=== PATIENT | male | born 1965 | race Caucasian/White ===

== ENCOUNTER 2019-04-27 10:10 | Emergency (ER) | payer OTHER, SELFPAY ==
[2019-04-27] MEDS ORDERED: ENALAPRIL 10 MG TAB ONE (10:53)
[2019-04-27] MEDS ORDERED: ENALAPRILAT 1.25 MG/ML VIAL IV ONE (10:53)
[2019-04-27] MEDS ORDERED: METOPROLOL TAR 50 MG TAB ONE (10:53)
[2019-04-27] MEDS ORDERED: METOPROLOL TARTRATE 5 MG/5 ML INJ IV ONE ×2 (10:53→12:32)
[2019-04-27 11:15] LABS: Basophils % 1.1 % (0-1.3); Hematocrit 44.2 % (39.6-49.0); Lymphocytes % 38.8 % (15.3-44.8); MPV 9.2 fL (7.6-11.3); RBC Red Blood Cell Count 4.17 M/uL (4.33-5.43)
--- NOTE | 2019-04-27 11:22 | RAD REPORT ---
EXAM DESCRIPTION: Lisandra Single View04/27/2019 11:14 am CLINICAL HISTORY: cough COMPARISON: 2007 FINDINGS: The lungs appear clear of acute infiltrate. The heart is normal size IMPRESSION: No acute abnormalities displayed
[2019-04-27 11:24] LABS: Protime INR 1.11
[2019-04-27 11:45] LABS: AST/SGOT 228 U/L (15-37); Albumin 3.2 g/dL (3.4-5.0); Alkaline Phosphatase 82 U/L (45-117); BUN Blood Urea Nitrogen 17 mg/dL (7-18); Bicarbonate 28 mmol/L (21-32); Bilirubin Direct 0.3 mg/dL (0-0.2); Bilirubin Total 0.7 mg/dL (0.2-1.0); Glucose Level 119 mg/dL (74-106); Magnesium 1.9 mg/dL (1.8-2.4); NT PRO-BNP 243 pg/mL (<125); Potassium 4.1 mmol/L (3.5-5.1); Protein, Total 7.6 g/dL (6.4-8.2); Sodium Level 140 mmol/L (136-145); Troponin (Emerg Dept Use Only) < 0.02 ng/mL (0.0-0.045)
[2019-04-27 11:47] LABS: ALT/SGPT 344 U/L (12-78)
--- NOTE | 2019-04-27 13:19 | ER ---
Nurse's Notes [facility] Name: Kahlil Slade Age: 54 yrs Sex: Male : 1965 Arrival Date: 04/27/2019 Time: 10:13 Bed 26 [facility] MD: Diagnosis: Essential (primary) hypertension;Headache Presentation: 04/27 10:15 Presenting complaint: Headache, photosensitivity, and nausea x 2 days, home BP 168/104. hb Takes losartan, has not had morning dose today. Transition of care: patient was not received from another setting of care. Onset of symptoms was April 26, 2019. Risk Assessment: Do you want to hurt yourself or someone else? Patient reports no desire to harm self or others. Initial Sepsis Screen: Does the patient meet any 2 criteria? No. Patient's initial sepsis screen is negative. Does the patient have a suspected source of infection? No. Patient's initial sepsis screen is negative. Care prior to arrival: None. 10:15 Method Of Arrival: Ambulatory hb 10:15 Acuity: AMY 3 hb Triage Assessment: 12:51 Headache History: The patient has had previous headaches and this one is similar to tw2 previous episodes. General: Appears in no apparent distress. Pain: Pain currently is 5 out of 10 on a pain scale. Pain began 1 hour ago. Also complains of photophobia. Historical: - Allergies: 10:18 No Known Allergies; hb - Home Meds: 10:18 losartan 100 mg oral tab once daily [Active]; clopidogrel Oral [Active]; hb - PMHx: 10:18 Hypertension; CAD; hb - PSHx: 10:18 Heart stents; hb - Immunization history:: Adult Immunizations up to date. - Social history:: Smoking status: Patient/guardian denies using tobacco. - Ebola Screening: : No symptoms or risks identified at this time. - Family history:: not pertinent. Screenin:30 Abuse screen: Denies threats or abuse. Nutritional screening: No deficits noted. tw2 Tuberculosis screening: No symptoms or risk factors identified. Fall Risk None identified. Assessment: 10:22 General: Appears in no apparent distress. uncomfortable, Behavior is calm, cooperative, tw2 appropriate for age. Pain: Complains of pain in headache. Neuro: Level of Consciousness is awake, alert, obeys commands, Oriented to person, time. Neuro: Reports headache photophobia. Cardiovascular: Heart tones S1 S2 Patient's skin is warm and dry. Cardiovascular: Reports "tightness in my chest when i first noticed it but i think the motrin helped my headache". Respiratory: Airway is patent Respiratory effort is even, unlabored, Respiratory pattern is regular, symmetrical, Breath sounds are clear bilaterally. GI: No signs and/or symptoms were reported involving the gastrointestinal system. Abdomen is flat, Bowel sounds present X 4 quads. : No signs and/or symptoms were reported regarding the genitourinary system. EENT: No signs and/or symptoms were reported regarding the EENT system. Derm: No signs and/or symptoms reported regarding the dermatologic system. Musculoskeletal: Range of motion: intact in all extremities. 11:21 Reassessment: No changes from previously documented assessment. Patient and/or family tw2 updated on plan of care and expected duration. Pain level reassessed. Patient is alert, oriented x 3, equal unlabored respirations, skin warm/dry/pink. 12:30 Reassessment: No changes from previously documented assessment. Patient and/or family tw2 updated on plan of care and expected duration. Pain level reassessed. Patient is alert, oriented x 3, equal unlabored respirations, skin warm/dry/pink. 12:48 Reassessment: Patient appears in no apparent distress at this time. Patient and/or tw2 family updated on plan of care and expected duration. Pain level reassessed. Patient is alert, oriented x 3, equal unlabored respirations, skin warm/dry/pink. Patient states feeling better. 13:51 Reassessment: Patient appears in no apparent distress at this time. No changes from tw2 previously documented assessment. Patient and/or family updated on plan of care and expected duration. Pain level reassessed. Patient is alert, oriented x 3, equal unlabored respirations, skin warm/dry/pink. Vital Signs: 10:16 BP 157 / 114; Pulse 106; Resp 16; Temp 98.4(O); Pulse Ox 96% ; Weight 106.59 kg; Height hb 5 ft. 11 in. (180.34 cm); Pain 5/10; 11:22 BP 152 / 109; Pulse 79; Resp 22; Pulse Ox 95% on R/A; Pain 5/10; tw2 12:29 BP 140 / 101; Pulse 63; Resp 17; Pulse Ox 95% on R/A; tw2 12:34 BP 124 / 98; Pulse 71; Resp 16; Pulse Ox 98% ; lt1 13:43 BP 133 / 98; Pulse 74; Resp 17; Temp 98.6; Pulse Ox 99% ; lt1 10:16 Body Mass Index 32.77 (106.59 kg, 180.34 cm) hb ED Course: 10:13 Patient arrived in ED. as 10:16 Triage completed. hb 10:16 Arm band placed on. hb 10:18 Placed in gown. Bed in low position. surveillance monitor on. Pulse ox on. NIBP on. tw2 10:23 Ej Argueta MD is Attending Physician. yoandy 10:30 Jennie Yee RN is Primary Nurse. tw2 11:03 Initial lab(s) drawn, by me, sent to lab. Inserted saline lock: 20 gauge in right lt1 antecubital area, using aseptic technique. 11:22 XRAY Chest (1 view) In Process Unspecified. EDMS 13:18 Tristian Irizarry MD is Referral Physician. yoandy 13:26 Ultrasound completed. hr 13:30 US Abdomen Limited In Process Unspecified. EDMS 13:51 No provider procedures requiring assistance completed. IV discontinued, intact, tw2 bleeding controlled, No redness/swelling at site. Pressure dressing applied. Administered Medications: 10:55 Drug: Enalapril 5 mg Route: PO; tw2 12:29 Follow up: Response: No adverse reaction; No change in condition tw2 10:56 Drug: Lopressor (metoprolol TARTRATE) 50 mg Route: PO; tw2 12:29 Follow up: Response: No adverse reaction; No change in condition tw2 11:02 Drug: Enalaprilat 1.25 mg Route: IV; Rate: per protocol; Site: right antecubital; tw2 11:02 Follow up: Response: No adverse reaction; No change in condition; Blood pressure is tw2 unchanged; Blood pressure is unchanged, provider notified; IV Status: Completed infusion 11:04 Drug: Lopressor 5 mg Route: IVP; Site: right antecubital; tw2 12:12 Follow up: Response: No adverse reaction; No change in condition tw2 12:13 Follow up: Response: No adverse reaction; No change in condition tw2 12:35 Drug: Lopressor 5 mg Route: IVP; Site: right antecubital; tw2 12:47 Follow up: Response: No adverse reaction; Blood pressure is lowered tw2 Outcome: 13:18 Discharge ordered by . yoandy 13:51 Discharged to home ambulatory. tw2 13:51 Condition: stable 13:51 Discharge instructions given to patient, Instructed on discharge instructions, follow up and referral plans. medication usage, Demonstrated understanding of instructions, follow-up care, medications, Prescriptions given X 2. 13:55 Patient left the ED. tw2 Signatures: Dispatcher [employer] EDMS Ej Argueta MD MD cha Rod, Sasha Feng Heather, RN RN hb Wise, Tara, RN RN tw2 Estrella Gonzalez 1 Corrections: (The following items were deleted from the chart) 10:18 10:16 BP 159 / 121; Pulse 106bpm; Resp 16bpm; Pulse Ox 96%; Temp 98.4F Oral; 106.59 kg; hb Height 5 ft. 11 in.; BMI: 32.7; Pain 5/10; hb
--- NOTE | 2019-04-27 13:19 | EDPHYS ---
Physician Documentation [facility] Name: Kahlil Slade Age: 54 yrs Sex: Male : 1965 Arrival Date: 04/27/2019 Time: 10:13 Bed 26 Private MD: ED Physician Ej Argueta HPI: 04/27 10:47 This 54 yrs old Male presents to ER via Ambulatory with complaints of High yoandy Blood Pressure, Headache. 10:47 The patient has elevated blood pressure and discovered this at home. Onset: The yoandy symptoms/episode began/occurred 2 day(s) ago. Modifying factors: The symptoms are aggravated by activity, The symptoms are alleviated by remaining still. Associated signs and symptoms: Pertinent positives: headache. Severity of symptoms: At its worst the blood pressure was mild, in the emergency department the blood pressure is unchanged. The patient has not experienced similar symptoms in the past. Historical: - Allergies: 10:18 No Known Allergies; hb - Home Meds: 10:18 losartan 100 mg oral tab once daily [Active]; clopidogrel Oral [Active]; hb - PMHx: 10:18 Hypertension; CAD; hb - PSHx: 10:18 Heart stents; hb - Immunization history:: Adult Immunizations up to date. - Social history:: Smoking status: Patient/guardian denies using tobacco. - Ebola Screening: : No symptoms or risks identified at this time. - Family history:: not pertinent. ROS: 10:47 Constitutional: Negative for fever, chills, and weight loss, Eyes: Negative for injury, yoandy pain, redness, and discharge, ENT: Negative for injury, pain, and discharge, Neck: Negative for injury, pain, and swelling, Cardiovascular: Negative for chest pain, palpitations, and edema, Respiratory: Negative for shortness of breath, cough, wheezing, and pleuritic chest pain, Abdomen/GI: Negative for abdominal pain, nausea, vomiting, diarrhea, and constipation, Back: Negative for injury and pain, : Negative for injury, bleeding, discharge, and swelling, MS/Extremity: Negative for injury and deformity, Skin: Negative for injury, rash, and discoloration, Neuro: Negative for headache, weakness, numbness, tingling, and seizure, Psych: Negative for depression, anxiety, suicide ideation, homicidal ideation, and hallucinations, Allergy/Immunology: Negative for hives, rash, and allergies, Endocrine: Negative for neck swelling, polydipsia, polyuria, polyphagia, and marked weight changes, Hematologic/Lymphatic: Negative for swollen nodes, abnormal bleeding, and unusual bruising. Exam: 10:47 Constitutional: This is a well developed, well nourished patient who is awake, alert, yoandy and in no acute distress. Head/Face: Normocephalic, atraumatic. Eyes: Pupils equal round and reactive to light, extra-ocular motions intact. Lids and lashes normal. Conjunctiva and sclera are non-icteric and not injected. Cornea within normal limits. Periorbital areas with no swelling, redness, or edema. ENT: Nares patent. No nasal discharge, no septal abnormalities noted. Tympanic membranes are normal and external auditory canals are clear. Oropharynx with no redness, swelling, or masses, exudates, or evidence of obstruction, uvula midline. Mucous membranes moist. Neck: Trachea midline, no thyromegaly or masses palpated, and no cervical lymphadenopathy. Supple, full range of motion without nuchal rigidity, or vertebral point tenderness. No Meningismus. Chest/axilla: Normal chest wall appearance and motion. Nontender with no deformity. No lesions are appreciated. Cardiovascular: Regular rate and rhythm with a normal S1 and S2. No gallops, murmurs, or rubs. Normal PMI, no JVD. No pulse deficits. Respiratory: Lungs have equal breath sounds bilaterally, clear to auscultation and percussion. No rales, rhonchi or wheezes noted. No increased work of breathing, no retractions or nasal flaring. Abdomen/GI: Soft, non-tender, with normal bowel sounds. No distension or tympany. No guarding or rebound. No evidence of tenderness throughout. Back: No spinal tenderness. No costovertebral tenderness. Full range of motion. Male : Normal genitalia with no discharge or lesions. Skin: Warm, dry with normal turgor. Normal color with no rashes, no lesions, and no evidence of cellulitis. MS/ Extremity: Pulses equal, no cyanosis. Neurovascular intact. Full, normal range of motion. Neuro: Awake and alert, GCS 15, oriented to person, place, time, and situation. Cranial nerves II-XII grossly intact. Motor strength 5/5 in all extremities. Sensory grossly intact. Cerebellar exam normal. Normal gait. Psych: Awake, alert, with orientation to person, place and time. Behavior, mood, and affect are within normal limits. Vital Signs: 10:16 BP 157 / 114; Pulse 106; Resp 16; Temp 98.4(O); Pulse Ox 96% ; Weight 106.59 kg; Height hb 5 ft. 11 in. (180.34 cm); Pain 5/10; 11:22 BP 152 / 109; Pulse 79; Resp 22; Pulse Ox 95% on R/A; Pain 5/10; tw2 12:29 BP 140 / 101; Pulse 63; Resp 17; Pulse Ox 95% on R/A; tw2 12:34 BP 124 / 98; Pulse 71; Resp 16; Pulse Ox 98% ; lt1 13:43 BP 133 / 98; Pulse 74; Resp 17; Temp 98.6; Pulse Ox 99% ; lt1 10:16 Body Mass Index 32.77 (106.59 kg, 180.34 cm) hb MDM: 10:23 Patient medically screened. [facility] 10:49 Data reviewed: vital signs, nurses notes, EMS record, lab test result(s), EKG, [facility] radiologic studies, plain films. 04/27 10:47 Order name: Basic Metabolic Panel; Complete Time: 12:26 [facility] 04/27 10:47 Order name: CBC with Diff [facility] 04/27 10:47 Order name: LFT's; Complete Time: 12:26 [facility] 04/27 10:47 Order name: Magnesium; Complete Time: 12:26 [facility] 04/27 10:47 Order name: NT PRO-BNP; Complete Time: 12:26 [facility] 04/27 10:47 Order name: PT-INR; Complete Time: 12:26 [facility] 04/27 10:47 Order name: Troponin (emerg Dept Use Only); Complete Time: 12:26 [facility] 04/27 10:47 Order name: XRAY Chest (1 view); Complete Time: 12:26 [facility] 04/27 12:13 Order name: Urine Dipstick--Ancillary (enter results) 04/27 12:59 Order name: US Abdomen Limited [facility] 04/27 10:47 Order name: EKG; Complete Time: 10:49 [facility] 04/27 10:47 Order name: Cardiac monitoring; Complete Time: 10:50 [facility] 04/27 10:47 Order name: EKG - Nurse/Tech; Complete Time: 10:50 [facility] 04/27 10:47 Order name: IV Saline Lock; Complete Time: 11:03 [facility] 04/27 10:47 Order name: Labs collected and sent; Complete Time: 11:03 [facility] 04/27 10:47 Order name: O2 Per Protocol; Complete Time: 10:50 [facility] 04/27 10:47 Order name: O2 Sat Monitoring; Complete Time: 10:50 [facility] 04/27 10:47 Order name: Urine Dipstick-Ancillary (obtain specimen); Complete Time: 12:00 [facility] 04/27 13:22 Order name: Vital Signs; Complete Time: 13:43 [facility] Administered Medications: 10:55 Drug: Enalapril 5 mg Route: PO; tw2 12:29 Follow up: Response: No adverse reaction; No change in condition tw2 10:56 Drug: Lopressor (metoprolol TARTRATE) 50 mg Route: PO; tw2 12:29 Follow up: Response: No adverse reaction; No change in condition tw2 11:02 Drug: Enalaprilat 1.25 mg Route: IV; Rate: per protocol; Site: right antecubital; tw2 11:02 Follow up: Response: No adverse reaction; No change in condition; Blood pressure is tw2 unchanged; Blood pressure is unchanged, provider notified; IV Status: Completed infusion 11:04 Drug: Lopressor 5 mg Route: IVP; Site: right antecubital; tw2 12:12 Follow up: Response: No adverse reaction; No change in condition tw2 12:13 Follow up: Response: No adverse reaction; No change in condition tw2 12:35 Drug: Lopressor 5 mg Route: IVP; Site: right antecubital; tw2 12:47 Follow up: Response: No adverse reaction; Blood pressure is lowered tw2 Disposition: 04/27/19 13:18 Discharged to Home. Impression: Essential (primary) hypertension, Headache. - Condition is Stable. - Discharge Instructions: Hypertension, Hypertension, [id number], Aspirin and Your Heart. - Prescriptions for Toprol XL 50 mg Oral Tablet - take 1 tablet by ORAL route once daily; 20 tablet. Vasotec 5 mg Oral Tablet - take 1 tablet by ORAL route once daily; 30 tablet. - Medication Reconciliation Form, Thank You Letter, Antibiotic Education, Prescription Opioid Use, Work release form form. - Follow up: Private Physician; When: 2 - 3 days; Reason: Recheck today's complaints, Continuance of care, Re-evaluation by your physician. Follow up: Tristian Irizarry; When: 2 - 3 days; Reason: Recheck today's complaints, Continuance of care, Re-evaluation by your physician. - Problem is new. - Symptoms have improved. Signatures: Dispatcher [employer] EDEj Fernandez MD MD cha Baxter, Heather, RN RN Jennie Yee RN RN tw2 Corrections: (The following items were deleted from the chart) 13:55 13:18 04/27/2019 13:18 Discharged to Home. Impression: Essential (primary) tw2 hypertension; Headache. Condition is Stable. Discharge Instructions: Hypertension, Hypertension, [id number], Aspirin and Your Heart. Prescriptions for Toprol XL 50 mg Oral Tablet - take 1 tablet by ORAL route once daily; 20 tablet, Vasotec 5 mg Oral Tablet - take 1 tablet by ORAL route once daily; 30 tablet. and Forms are Medication Reconciliation Form, Thank You Letter, Antibiotic Education, Prescription Opioid Use. Follow up: Private Physician; When: 2 - 3 days; Reason: Recheck today's complaints, Continuance of care, Re-evaluation by your physician. Follow up: Tristian Irizarry; When: 2 - 3 days; Reason: Recheck today's complaints, Continuance of care, Re-evaluation by your physician. Problem is new. Symptoms have improved. yoandy
--- NOTE | 2019-04-27 13:33 | RAD REPORT ---
EXAM DESCRIPTION: US - Abdomen Exam Limited - 04/27/2019 1:26 pm CLINICAL HISTORY: ABD PAIN COMPARISON: ABDOMINAL EXAM LIMITED dated 01/26/2008 FINDINGS: The gallbladder demonstrates no gallstones. No pericholecystic fluid or gallbladder wall t hickening. The common bile duct is normal measuring 2 mm. The liver demonstrates no findings of intrahepatic biliary dilatation. IMPRESSION: Unremarkable examination.
[2019-04-27 14:04] LABS: Blood Morphology Comment NOTED (NOT SEEN); Platelet Estimate DECR; Urine White Blood Cell Casts OK
[2019-04-27 14:05] LABS: Macrocytosis 1+
[2019-04-27 14:12] VITALS: BP 133/98; TEMP 98.6; O2SAT 99
[2019-04-27 20:37] LABS: Urine Blood NEGATIVE (NEG); Urine Glucose NEGATIVE (NEG); Urine Protein NEGATIVE (NEG); Urine Specific Gravity 1.025 (1.005-1.030)
--- NOTE | 2019-04-28 07:28 | EKG ---
Test Date: 2019-04-27 Test Time: 10:25:41 Software Requirements Engineer: ADITYAT MEASUREMENT RESULTS: Intervals: Rate: 98 GA: 138 QRSD: 82 QT: 324 QTc: 413 [place]: P: 52 GA: 138 QRS: 60 T: 49 INTERPRETIVE STATEMENTS: Normal sinus rhythm Normal ECG Compared to ECG 01/25/2008 21:34:08 No significant changes Electronically Signed On 04-28-19 07:25:52 CDT by Tristian Irizarry
== END 2019-04-27 13:55 | disposition home or self-care (01) ==
LOC: ER 10:10
DX: I10 Essential (primary) hypertension (principal); R51 Headache; Z95.5 Presence of coronary angioplasty implant and graft
CPT/HCPCS: 36415; 71045; 76705; 80048; 80076; 81003; 83735; 83880; 84484; 85025; 85610; 93005; 96374; 96375; 99284

== ENCOUNTER 2024-01-03 17:14 | Emergency (ER) | payer OTHER ==
--- OUTSIDE RECORDS SUMMARY | 2024-01-03 17:36 | XMS REPORT | Continuity of Care Document ---
Author Name Unknown Address [address] [facility] [address] [place] [address] [facility] thconnect Address [address] [facility] [address] [place] [address] Care Team Providers Care Associate Veterinarian Name Role Phone Rianna Varela MD Primary Care Physician [phone] RIANNA VARELA Attending Clinician Unavailable BORIS ESQUIVEL Attending Clinician Megan Esquivel MD, Boris Tariq Attending Clinician [phone] Nichole GUARDADO, Rianna Attending Clinician + SALOMÓN SEE Attending Clinician Unavailable Doctor Unassigned, [place] Attending Clinician U jorgito Anderson MD, Kael Attending Clinician [phone] Salomón See MD Attending Clinician [phone] Miguel ENTRY MANAGER, Alise Attending Clinician + ALISE LEVINE Attending Clinician Unavailable 2, [facility] Attending Clinician Unavailable NAYANA TAYLOR Attending Clinician Unavailab NAYANA Qiu Attending Clinician Unavailab HIRA Lopes Attending Clinician Unavailable Ebrahichemo ENTRY MANAGER, Hira Attending Clinician [phone] Unknown, Attending Attending Clinician Unavailab RICKEY Schulte Attending Clinician Unavailable Eusebio ENTRY MANAGER, Linda Blank Attending Clinician + [phone] Alberto ENTRY MANAGER, Rickey Attending Clinician [phone] GABRIEL WINKLER Attending Clinician Unavailable Bri ENTRY MANAGER, Rick B Attending Clinician [phone] Gabriel Winkler MD Attending Clinician [phone] Yasmeen GUARDADO, Judit Attending Clinician [phone] RAE GRIMALDO Attending Clinician Unavailable Cacyana ENTRY MANAGERRae Attending Clinician [phone] Pob, [facility] Main Attending Clinician UnavailMICHAEL Smith Attending Clinician Unavail able RANJITH REID Attending Clinician Unavailshalom Humphrey RN, Ej Attending Clinician Unavailab debi Only, Ang Db Test Attending Clinician Unavailshalom barron UNKNOWN, ATTENDING Attending Clinician UnavailRanjith Aponte MD Attending Clinician [phone] Gabriel Brunson Attending Clinician [phone] GABRIEL REID Attending Clinician Unavailable Rima Paez MD Attending Clinician [phone] RIMA PAEZ Attending Clinician Unavailable [facility] Attending Clinician Unavailable Jason Slade DO Attending Clinician [phone] Aron Burgos MD Attending Clinician [phone] Idalmis Bello Attending Clinician [phone] IDALMIS MEREDITH Attending Clinician Unavaillydia Gregg MD, [facility] Attending Clinician +- [phone] Outpt-Suly, Ccl Attending Clinician Unavailable Cynthia GUARDADO, Roger Vanessa Attending Clinician [phone] [facility]ending Clinician [phone] Pc, [facility] Echo Room 1 - Attending Clinician Rivka Rodríguez MD, William Attending Clinician [phone] ARON BURGOS Attending Clinician Unavailable ALISE LEVINE Admitting Clinician Unavailable JUDIT ARANA Admitting Clinician Unavailable Judit Arana MD Admitting Clinician [phone] RAE GRIMALDO Admitting Clinician Unavailable GABRIEL REID Admitting Clinician Unavailable IDALMIS MEREDITH Admitting Clinician UnavailARON Lopez Admitting Clinician Unavailable Payers Payer Name Policy Type Policy Number Effective Date Expirati on Date Source [id number] 2019 00:00:00 [employer] [id number] 2019 00:00:00 Problems Condition Name Condition Details Condition Category Status Onset Date Resolution Date Last Treatment Date Treating Clinician Comments Source Acute pain of right shoulder Acute pain of right shoulder Disease Active 04-04 00:00: 00 [facility] Acute pain of right shoulder Acute pain of right shoulder Disease Active 04-04 00:00: 00 [facility] Hypomagnes emia Hypomagnes emia Disease Active 2021-08 00:00: 00 [facility] Hepatitis A test positive Hepatitis A test positive Disease Active 2021-08 00:00: 00 [facility] Chronic hepatitis C without hepatic coma Chronic hepatitis C without hepatic coma Disease Active 04-03 00:00: 00 [facility] Chronic constipati on Chronic constipati on Disease Active 2022-0 8-24 00:00: 00 [facility] Continuous RUQ abdominal pain Continuous RUQ abdominal pain Disease Active 0 8-19 00:00: 00 [facility] Lumbar foraminal stenosis Lumbar foraminal stenosis Disease Active 0 8-18 00:00: 00 [facility] Abdominal pain, right upper quadrant Abdominal pain, right upper quadrant Disease Active 0 8-18 00:00: 00 [facility] Constipati on, slow transit Constipati on, slow transit Disease Active 0 8-18 00:00: 00 [facility] Hepatomega ly Hepatomega ly Disease Active 0 8-18 00:00: 00 [facility] Lumbar radiculopa thy Lumbar radiculopa thy Disease Active 0 7-26 00:00: 00 [facility] Gastroesop hageal reflux disease without esophagiti s Gastroesop hageal reflux disease without esophagiti s Disease Active 0 1-25 00:00: 00 [facility] Pneumonia due to COVID-19 virus Pneumonia due to COVID-19 virus Disease Active 1 0-21 00:00: 00 [facility] Centrilobu lar emphysema Centrilobu lar emphysema Disease Active 2020-08 0-21 00:00: 00 [facility] Syncope and collapse Syncope and collapse Disease Active 2020-08 0-21 00:00: 00 [facility] Hospital discharge follow-up Hospital discharge follow-up Disease Active 1 0-21 00:00: 00 [facility] Need for hepatitis C screening test Need for hepatitis C screening test Disease Active 1 0-21 00:00: 00 [facility] Incidental lung nodule Incidental lung nodule Disease Active 1 0-21 00:00: 00 [facility] Narrowing of interverte bral disc space Narrowing of interverte bral disc space Disease Active 0 8-12 00:00: 00 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 Numbness and tingling of right arm Numbness and tingling of right arm Disease Active 12-20 00:00: 00 [facility] Lumbar paraspinal muscle spasm Lumbar paraspinal muscle spasm Disease Active 12-20 00:00: 00 [facility] Nicotine dependence with current use Nicotine dependence with current use Disease Active 2019-08 00:00: 00 [facility] Cirrhosis with alcoholism Cirrhosis with alcoholism Disease Active 2019-08 00:00: 00 [facility] Nicotine dependence with current use Nicotine dependence with current use Disease Active 2019-08 00:00: 00 [facility] Elevated liver enzymes Elevated liver enzymes Disease Active 2019-08 00:00: 00 [facility] Mixed hyperlipid emia Mixed hyperlipid emia Disease Active 02-21 00:00: 00 [facility] Tachycardi a, unspecifie d Tachycardi a, unspecifie d Disease Active 02-21 00:00: 00 [facility] Other male erectile dysfunctio n Other male erectile dysfunctio n Disease Active 02-21 00:00: 00 [facility] Need for pneumococc al vaccinatio n Need for pneumococc al vaccinatio n Disease Active 05-07 00:00: 00 [facility] Essential hypertensi on Essential hypertensi on Disease Active 05-07 00:00: 00 [facility] Screening for malignant neoplasm of colon Screening for malignant neoplasm of colon Disease Active 05-07 00:00: 00 [facility] H/O heart artery stent H/O heart artery stent Disease Active 05-07 00:00: 00 [facility] CAD S/P percutaneo us coronary angioplast y CAD S/P percutaneo us coronary angioplast y Disease Active 05-07 00:00: 00 [facility] Need for pneumococc al vaccinatio n Need for pneumococc al vaccinatio n Disease Active 05-07 00:00: 00 [facility] Need for influenza vaccinatio n Need for influenza vaccinatio n Disease Active 05-07 00:00: 00 [facility] Cerebrovas cular accident (CVA), unspecifie d mechanism Cerebrovas cular accident (CVA), unspecifie d mechanism Disease Active 2017-08 00:00: 00 [facility] Obesity (BMI 30-39.9) Obesity (BMI 30-39.9) Disease Active 2017-08 00:00: 00 [facility] Alcoholism Alcoholism Disease Active 2015-08 00:00: 00 [facility] Smoking Smoking Disease Active 2015-08 00:00: 00 [facility] Allergies, Adverse Reactions, Alerts Allergy Name Allergy Type Status Severity Reaction(s) Onset Date Inactive Date Treating Clinician Comments Source NO KNOWN ALLERGIE S Drug Class Active [facility] Social History Social Habit Start Date Stop Date Quantity Comments Source History of tobacco use Cigarette Smoker [facility] Alcohol intake 2023-10-03 00:00:00 2023-10-03 00:00:00 1.71 /d [facility] History of Social function 2023-04-04 00:00:00 2023-04-04 00:00:00 [facility] Exposure to SARS-CoV-2 (event) 2022-09-20 00:00:00 2022-09-30 14:44:00 Not sure [facility] Cigarettes smoked current (pack per day) - Reported 2022-04-03 00:00:00 2022-04-03 00:00:00 [facility] Cigarette pack-years 2022-04-03 00:00:00 2022-04-03 00:00:00 [facility] Tobacco use and exposure 2022-04-03 00:00:00 2022-04-03 00:00:00 Smokeless tobacco non-user [facility] Tobacco Comment 2022-04-03 00:00:00 2022-04-03 00:00:00 1 pack/ day [facility] Sex Assigned At 1965 00:00:00 1965 00:00:00 [facility] Smoking Status Start Date Stop Date Source Smokes tobacco daily 2022-04-03 00:00:00 [facility] Medications Ordered Medication Name Filled Medication Name Start Date Stop Date Current Medication? Ordering Clinician Indication Dosage Frequency Signature (SIG) Comments Components Source ATORVASTATI N 40 mg tablet 12-11 00:00: 00 Yes [id number] 40mg TAKE 1 TABLET BY MOUTH AT BEDTIME [facility] SPIRONOLACT ONE 25 mg tablet 11-30 00:00: 00 Yes [id number] 25mg TAKE 1 TABLET BY MOUTH IN THE MORNING [facility] GABAPENTIN 400 mg capsule 08-12 00:00: 00 10-03 00:00 :00 No [id number] 400mg TAKE 1 CAPSULE BY MOUTH IN THE MORNING AND 1 CAPSULE AT NOON AND [address] IN THE EVENING [facility] tc 99m-tetrofo smin (MYOVIEW) injection 43.9 millicurie 2022-08 18:45: 00 07-08 18:45 :00 No [id number] 43.9mCi 43.9 millicurie , Intravenou s, ONCE, 1 dose, On Fri07/08/23 at 1245, Routine [facility] tc 99m-tetrofo smin (MYOVIEW) injection 14.6 millicurie 2022-08 16:00: 00 07-08 16:04 :00 No [id number] 14.6mCi 14.6 millicurie , Intravenou s, ONCE, 1 dose, On Fri07/08/23 at 1000, Routine [facility] sulfur hexafluorid e microsphr (LUMASON) injection 5 mL 2022-08 16:00: 00 07-08 15:59 :00 No [id number] 5mL 5 mL, Intravenou s, ONCE, 1 dose, On Fri07/08/23 at 1000, Routine
geography faculty member approving Restricted medication : BORIS ESQUIVEL [facility] regadenoson (LEXISCAN) injection 0.4 mg 2022-08 16:00: 00 07-08 18:50 :00 No [id number] .4mg 0.4 mg, IV Push, ONCE, 1 dose, On 07/08/23 at 1000, Routine
geography faculty member approving Restricted medication : ARNALDO HERNÁNDEZ [facility] COQ10, UBIQUINOL, ORAL 2022-08 14:41: 05 Yes Take by mouth daily. [facility] methylPREDN ISolone (MEDROL, GARRET,) 4 mg tablets 2022-08 00:00: 00 10-03 00:00 :00 No [id number] Take by mouth SEE-INSTRU CTIONS. follow package directions [facility] gadobenate dimeglumine (MULTIHANCE -20 mL) injection 0.2 mL/kg 2022-08 20:00: 00 07-06 19:57 :00 No [id number] .2mL/kg 0.2 mL/kg, Intravenou s, ONCE, 1 dose, On 07/06/23 at 1400, Routine [facility] COQ10, UBIQUINOL, ORAL 2022-08 10:25: 37 Yes Take by mouth daily. [facility] metoprolol succinate XL 50 mg 24 hr tablet 2022-08 00:00: 00 Yes [id number] 50mg Take 1 tablet by mouth in the morning and 1 tablet in the evening. [facility] atorvastati n 40 mg tablet 2022-08 00:00: 00 12-11 00:00 :00 No [id number] 40mg Take 1 tablet by mouth at bedtime. [facility] clopidogreL 75 mg tablet 04-04 00:00: 00 Yes [id number] 75mg Take 1 tablet by mouth in the morning. [facility] enalapril 5 mg tablet 04-04 00:00: 00 Yes [id number] 5mg Take 1 tablet by mouth in the morning. [facility] spironolact one 25 mg tablet 04-04 00:00: 00 11-30 00:00 :00 No [id number] 25mg Take 1 tablet by mouth in the morning. [facility] Diclofenac Sodium (VOLTAREN) 1 % gel 04-04 00:00: 00 10-03 00:00 :00 No [id number] Apply to area(s) 4 (four) times daily. Apply [address] [facility] metoprolol succinate XL 50 mg 24 hr tablet 04-04 00:00: 00 06-24 00:00 :00 No [id number] 50mg Take 1 tablet by mouth in the morning. [facility] METOPROLOL SUCCINATE XL 50 mg 24 hr tablet 03-21 00:00: 00 04-04 00:00 :00 No [id number] 50mg TAKE 1 TABLET BY MOUTH IN THE MORNING [facility] CLOPIDOGREL 75 mg tablet 03-21 00:00: 00 04-04 00:00 :00 No [id number] 75mg TAKE 1 TABLET BY MOUTH IN THE MORNING [facility] ENALAPRIL 5 mg tablet 03-21 00:00: 00 04-04 00:00 :00 No [id number] 5mg TAKE 1 TABLET BY MOUTH IN THE MORNING [facility] sildenafiL 25 mg tablet 02-21 00:00: 00 Yes [id number] 25mg Take 1 tablet by mouth as needed (Erectile dysfunctio n). Take 1 tab 30 mins to 1 hour prior to sexual encounter. Do not mix with alcohol or other medication s. Do not exceed 25mg in [address] [facility] pravastatin 20 mg tablet 02-21 00:00: 00 06-24 00:00 :00 No [id number] 20mg Take 1 tablet by mouth at bedtime. [facility] furosemide 20 mg tablet 02-19 00:00: 00 Yes [id number] 20mg Take 1 tablet by mouth every Friday, and Friday in the evening. [facility] furosemide 20 mg tablet 10-02 00:00: 00 02-18 00:00 :00 No [id number] 20mg Take 1 tablet by mouth every Friday, and Friday in the evening. [facility] metoprolol succinate XL 50 mg 24 hr tablet 10-01 16:08: 58 10-01 00:00 :00 No 50mg Take 50 mg by mouth in the morning. [facility] cyclobenzap rine 10 mg tablet 10-01 00:00: 00 10-03 00:00 :00 No [id number] 10mg Take 1 tablet by mouth in the morning and 1 tablet at noon and 1 tablet in the evening. [facility] gabapentin 400 mg capsule 10-01 00:00: 00 08-12 00:00 :00 No [id number] 400mg Take 1 capsule by mouth in the morning and 1 capsule at noon and 1 capsule in the evening. [facility] spironolact one 25 mg tablet 10-01 00:00: 00 04-04 00:00 :00 No [id number] 25mg Take 1 tablet by mouth in the morning. [facility] enalapril 5 mg tablet 10-01 00:00: 00 03-21 00:00 :00 No [id number] 5mg Take 1 tablet by mouth in the morning. [facility] clopidogreL 75 mg tablet 10-01 00:00: 00 03-21 00:00 :00 No [id number] 75mg Take 1 tablet by mouth in the morning. [facility] metoprolol succinate XL 50 mg 24 hr tablet 10-01 00:00: 00 03-21 00:00 :00 No [id number] 50mg Take 1 tablet by mouth in the morning. [facility] pravastatin 20 mg tablet 10-01 00:00: 00 02-21 00:00 :00 No [id number] 20mg Take 1 tablet by mouth at bedtime. [facility] Magnesium 250 mg Tab 08-27 00:00: 00 Yes [id number] 1{tbl} Take 1 tablet by mouth daily. [facility] Magnesium 250 mg Tab 08-27 00:00: 00 Yes [id number] 1{tbl} Take 1 tablet by mouth daily. [facility] polymyxin B sulf-trimet hoprim 10,000 unit- 1 mg/mL ophthalmic drops 2021-08 00:00: 00 08-07 05:59 :00 No [id number] 1[drp] Place 1 Drop in left eye every 4 (four) hours for [address] [facility] sildenafiL 25 mg tablet 2021-08 00:00: 00 02-21 00:00 :00 No [id number] 25mg Take 1 tablet by mouth as needed (Erectile dysfunctio n). Take 1 tab 30 mins to 1 hour prior to sexual encounter. Do not mix with alcohol or other medication s. Do not exceed 25mg in [address] [facility] famotidine 40 mg tablet 2021-08 00:00: 00 Yes [id number] 40mg Take 1 tablet by mouth in the morning. [facility] sofosbuvir- velpatasvir (EPCLUSA) 400-100 mg 2021-08 00:00: 00 10-01 00:00 :00 No [id number] 1{tbl} Take 1 tablet by mouth in the morning. [facility] sofosbuvir- velpatasvir (EPCLUSA) 400-100 mg 2021-08 0 00:00: 00 Yes [id number] 1{tbl} Take 1 tablet by mouth in the morning. [facility] pravastatin 20 mg tablet 2021-08 0 00:00: 00 10-01 00:00 :00 No [id number] 20mg Take 1 tablet by mouth at bedtime. [facility] neomycin-po lymyxin-hyd rocortisone otic solution 2021-08 0- 00:00: 00 05-30 04:59 :00 No [id number] 3[drp] Place 3 Drops in right ear 4 (four) times daily for [address] [facility] Magnesium 250 mg Tab 05-10 00:00: 00 08-26 00:00 :00 No [id number] 1{tbl} Take 1 tablet by mouth daily. [facility] sofosbuvir- velpatasvir (EPCLUSA) 400-100 mg 05-07 00:00: 00 05-19 00:00 :00 No [id number] 1{tbl} Take 1 tablet by mouth in the morning. [facility] lactulose 10 gram/15 mL (15 mL) Soln 04-04 00:00: 00 10-03 00:00 :00 No [id number] 15mL Take 15 mL by mouth daily. [facility] docusate (COLACE) 100 mg capsule 04-03 00:00: 00 10-03 00:00 :00 No [id number] 100mg Take 1 capsule by mouth 2 (two) times daily as needed for Constipati on. [facility] lactulose 10 gram/15 mL (15 mL) Soln 04-03 00:00: 00 04-04 00:00 :00 No [id number] 15mL Take 15 mL by mouth daily. [facility] lactulose 10 gram/15 mL (15 mL) [facility]: 00 04-03 00:00 :00 No [id number] 15mL Take 15 mL by mouth daily. [facility] omega-3/dha /epa/dpa/fi sh oil (OMEGA-3 2100 ORAL) 03-30 17:32: 21 Yes Take by mouth. [facility] metoprolol succinate XL 50 mg 24 hr tablet 03-30 17:32: 21 Yes 50mg Take 50 mg by mouth in the morning. [facility] polyethylen e glycol 3350 (MIRALAX) 17 gram/dose powder 03-30 00:00: 00 10-03 00:00 :00 No [id number] 17g Take 17 g by mouth in the morning. [facility] sennosides 8.6 mg tablet 03-30 00:00: 00 07-11 00:00 :00 No [id number] 8.6mg Take 1 tablet by mouth in the morning. [facility] furosemide 20 mg tablet 03-29 00:00: 00 10-01 00:00 :00 No [id number] 20mg Take 1 tablet by mouth every Friday, and Friday in the evening. [facility] folic acid 0.8 mg Cap 03-28 00:00: 00 Yes [id number] 1{tbl} Take 1 tablet by mouth daily. [facility] Vitamin B-12 1,000 mcg tablet 03-28 00:00: 00 Yes [id number] 1000ug Take 1 tablet by mouth in the morning. [facility] vitamin B-1 50 mg tablet 03-28 00:00: 00 Yes [id number] 50mg Take 1 tablet by mouth in the morning. [facility] pyridoxine, vitamin B6, 50 mg tablet 03-28 00:00: 00 Yes [id number] 50mg Take 1 tablet by mouth in the morning. [facility] psyllium (METAMUCIL) 0.52 gram capsule 03-28 00:00: 00 10-03 00:00 :00 No [id number] .52g Take 1 capsule by mouth in the morning. [facility] docusate (COLACE) 100 mg capsule 03-28 00:00: 00 04-03 00:00 :00 No [id number] 100mg Take 1 capsule by mouth 2 (two) times daily as needed for Constipati on. [facility] sofosbuvir- velpatasvir (EPCLUSA) 400-100 mg 8-11 00:00: 00 05-07 00:00 :00 No [id number] 1{tbl} Take 1 tablet by mouth in the morning. [facility] aspirin 81 mg chewable tablet 03-05 00:00: 00 Yes [id number] 81mg Take 1 tablet by mouth in the morning. [facility] Lidocaine 5 % cream 03-05 00:00: 00 10-03 00:00 :00 No [id number] Apply to area(s) 2 (two) times daily as needed for Pain (scale 4-6). Apply 5g to affected areas BID PRN [facility] Diclofenac Sodium (VOLTAREN) 1 % gel 03-05 00:00: 00 04-04 00:00 :00 No [id number] Apply to area(s) 4 (four) times daily. Apply [address] [facility] enalapril 5 mg tablet 03-05 00:00: 00 10-01 00:00 :00 No [id number] 5mg Take 1 tablet by mouth in the morning. [facility] spironolact one 25 mg tablet 03-05 00:00: 00 10-01 00:00 :00 No [id number] 25mg Take 1 tablet by mouth in the morning. [facility] clopidogreL 75 mg tablet 03-05 00:00: 00 10-01 00:00 :00 No [id number] 75mg Take 1 tablet by mouth in the morning. [facility] gabapentin 400 mg capsule 03-05 00:00: 00 10-01 00:00 :00 No [id number] 400mg Take 1 capsule by mouth in the morning and 1 capsule at noon and 1 capsule in the evening. [facility] cyclobenzap rine 10 mg tablet 03-05 00:00: 00 10-01 00:00 :00 No [id number] 10mg Take 1 tablet by mouth in the morning and 1 tablet at noon and 1 tablet in the evening. [facility] sildenafiL 25 mg tablet 03-05 00:00: 00 07-11 00:00 :00 No [id number] 25mg Take 1 tablet by mouth as needed (Erectile dysfunctio n). Take 1 tab 30 mins to 1 hour prior to sexual encounter. Do not mix with alcohol or other medication s. Do not exceed 25mg in [address] [facility] atorvastati n 40 mg tablet 7- 00:00: 00 05-19 00:00 :00 No [id number] 40mg Take 1 tablet by mouth at bedtime. [facility] nicotine 21 mg/24 hr patch 2020-08 0-21 00:00: 00 06-24 00:00 :00 No [id number] 1{patch } Apply 1 Patch to area(s) daily. Apply 21mg patch daily x 6 weeks; then apply 14mf patch daily x 2 weeks; then apply 7mg patch daily x 2 weeks. Stop smoking on initiation of therapy [facility] Lidocaine 4 % PtMd 8-12 00:00: 00 10-03 00:00 :00 No [id number] Apply to area(s) daily. [facility] Immunizations Ordered Immunization Name Filled Immunization Name Date Status Comments Source Influenza Virus Vaccine Quad IM, Preserv and ABX Free 6 MO-64 YRS 2022-06-03 00:00:00 Completed [facility] Pneumococcal 20 Conjugate, PCV20 (Prevnar 20) 2022-06-03 00:00:00 Completed [facility] Influenza Virus Vaccine Quad IM, Preserv and ABX Free 6 MO-64 YRS 2022-06-03 00:00:00 Completed [facility] Pneumococcal 20 Conjugate, PCV20 (Prevnar 20) 2022-06-03 00:00:00 Completed [facility] Influenza Virus Vaccine Quad IM, Preserv and ABX Free 6 MO-64 YRS 2022-06-03 00:00:00 Completed [facility] Pneumococcal 20 Conjugate, PCV20 (Prevnar 20) 2022-06-03 00:00:00 Completed [facility] Influenza Virus Vaccine Quad IM, Preserv and ABX Free 6 MO-64 YRS 2022-06-03 00:00:00 Completed [facility] Pneumococcal 20 Conjugate, PCV20 (Prevnar 20) 2022-06-03 00:00:00 Completed [facility] Influenza Virus Vaccine Quad IM, Preserv and ABX Free 6 MO-64 YRS 2022-06-03 00:00:00 Completed [facility] Pneumococcal 20 Conjugate, PCV20 (Prevnar 20) 2022-06-03 00:00:00 Completed [facility] Influenza Virus Vaccine Quad IM, Preserv and ABX Free 6 MO-64 YRS 2022-06-03 00:00:00 Completed [facility] Pneumococcal 20 Conjugate, PCV20 (Prevnar 20) 2022-06-03 00:00:00 Completed [facility] Influenza Virus Vaccine Quad IM, Preserv and ABX Free 6 MO-64 YRS 2022-06-03 00:00:00 Completed [facility] Pneumococcal 20 Conjugate, PCV20 (Prevnar 20) 2022-06-03 00:00:00 Completed [facility] Influenza Virus Vaccine Quad IM, Preserv and ABX Free 6 MO-64 YRS 2022-06-03 00:00:00 Completed [facility] Pneumococcal 20 Conjugate, PCV20 (Prevnar 20) 2022-06-03 00:00:00 Completed [facility] Influenza Virus Vaccine Quad IM, Preserv and ABX Free 6 MO-64 YRS 2022-06-03 00:00:00 Completed [facility] Pneumococcal 20 Conjugate, PCV20 (Prevnar 20) 2022-06-03 00:00:00 Completed [facility] Influenza Virus Vaccine Quad IM, Preserv and ABX Free 6 MO-64 YRS 2022-06-03 00:00:00 Completed [facility] Pneumococcal 20 Conjugate, PCV20 (Prevnar 20) 2022-06-03 00:00:00 Completed [facility] Influenza Virus Vaccine Quad IM, Preserv and ABX Free 6 MO-64 YRS 2022-06-03 00:00:00 Completed [facility] Pneumococcal 20 Conjugate, PCV20 (Prevnar 20) 2022-06-03 00:00:00 Completed [facility] Influenza Virus Vaccine Quad IM, Preserv and ABX Free 6 MO-64 YRS 2022-06-03 00:00:00 Completed [facility] Pneumococcal 20 Conjugate, PCV20 (Prevnar 20) 2022-06-03 00:00:00 Completed [facility] Influenza Virus Vaccine Quad IM, Preserv and ABX Free 6 MO-64 YRS 2022-06-03 00:00:00 Completed [facility] Pneumococcal 20 Conjugate, PCV20 (Prevnar 20) 2022-06-03 00:00:00 Completed [facility] Influenza Virus Vaccine Quad IM, Preserv and ABX Free 6 MO-64 YRS 2022-06-03 00:00:00 Completed [facility] Pneumococcal 20 Conjugate, PCV20 (Prevnar 20) 2022-06-03 00:00:00 Completed [facility] Influenza Virus Vaccine Quad IM, Preserv and ABX Free 6 MO-64 YRS 2022-06-03 00:00:00 Completed [facility] Pneumococcal 20 Conjugate, PCV20 (Prevnar 20) 2022-06-03 00:00:00 Completed [facility] Influenza Virus Vaccine Quad IM, Preserv and ABX Free 6 MO-64 YRS 2022-06-03 00:00:00 Completed [facility] Pneumococcal 20 Conjugate, PCV20 (Prevnar 20) 2022-06-03 00:00:00 Completed [facility] Influenza Virus Vaccine Quad IM, Preserv and ABX Free 6 MO-64 YRS 2022-06-03 00:00:00 Completed [facility] Pneumococcal 20 Conjugate, PCV20 (Prevnar 20) 2022-06-03 00:00:00 Completed [facility] Influenza Virus Vaccine Quad IM, Preserv and ABX Free 6 MO-64 YRS 2022-06-03 00:00:00 Completed [facility] Pneumococcal 20 Conjugate, PCV20 (Prevnar 20) 2022-06-03 00:00:00 Completed [facility] Influenza Virus Vaccine Quad IM, Preserv and ABX Free 6 MO-64 YRS 2022-06-03 00:00:00 Completed [facility] Pneumococcal 20 Conjugate, PCV20 (Prevnar 20) 2022-06-03 00:00:00 Completed [facility] Influenza Virus Vaccine Quad IM, Preserv and ABX Free 6 MO-64 YRS 2022-06-03 00:00:00 Completed [facility] Pneumococcal 20 Conjugate, PCV20 (Prevnar 20) 2022-06-03 00:00:00 Completed [facility] Influenza Virus Vaccine Quad IM, Preserv and ABX Free 6 MO-64 YRS 2022-06-03 00:00:00 Completed [facility] Pneumococcal 20 Conjugate, PCV20 (Prevnar 20) 2022-06-03 00:00:00 Completed [facility] Influenza Virus Vaccine Quad IM, Preserv and ABX Free 6 MO-64 YRS 2022-06-03 00:00:00 Completed [facility] Pneumococcal 20 Conjugate, PCV20 (Prevnar 20) 2022-06-03 00:00:00 Completed [facility] Influenza Virus Vaccine Quad IM, Preserv and ABX Free 6 MO-64 YRS 2022-06-03 00:00:00 Completed [facility] Pneumococcal 20 Conjugate, PCV20 (Prevnar 20) 2022-06-03 00:00:00 Completed [facility] Influenza Virus Vaccine Quad IM, Preserv and ABX Free 6 MO-64 YRS 2022-06-03 00:00:00 Completed [facility] Pneumococcal 20 Conjugate, PCV20 (Prevnar 20) 2022-06-03 00:00:00 Completed [facility] Influenza Virus Vaccine Quad IM, Preserv and ABX Free 6 MO-64 YRS 2022-06-03 00:00:00 Completed [facility] Pneumococcal 20 Conjugate, PCV20 (Prevnar 20) 2022-06-03 00:00:00 Completed [facility] Influenza Virus Vaccine Quad IM, Preserv and ABX Free 6 MO-64 YRS (FLUCELVAX) 2022-06-03 00:00:00 Completed [facility] Pneumococcal 20 Conjugate, PCV20 (Prevnar 20) 2022-06-03 00:00:00 Completed [facility] TDAP 2019-05-07 00:00:00 Completed [facility] Influenza Virus Vaccine Quad .5 mL IM 6+ MO 2019-05-07 00:00:00 Completed [facility] Pneumococcal Polysaccharide, PPSV23 (PNEUMOVAX) 2019-05-07 00:00:00 Completed [facility] TDAP 2019-05-07 00:00:00 Completed [facility] Influenza Virus Vaccine Quad .5 mL IM 6+ MO 2019-05-07 00:00:00 Completed [facility] Pneumococcal Polysaccharide, PPSV23 (PNEUMOVAX) 2019-05-07 00:00:00 Completed [facility] TDAP 2019-05-07 00:00:00 Completed [facility] Influenza Virus Vaccine Quad .5 mL IM 6+ MO 2019-05-07 00:00:00 Completed [facility] Pneumococcal Polysaccharide, PPSV23 (PNEUMOVAX) 2019-05-07 00:00:00 Completed [facility] TDAP 2019-05-07 00:00:00 Completed [facility] Influenza Virus Vaccine Quad .5 mL IM 6+ MO 2019-05-07 00:00:00 Completed [facility] Pneumococcal Polysaccharide, PPSV23 (PNEUMOVAX) 2019-05-07 00:00:00 Completed [facility] TDAP 2019-05-07 00:00:00 Completed [facility] Influenza Virus Vaccine Quad .5 mL IM 6+ MO 2019-05-07 00:00:00 Completed [facility] Pneumococcal Polysaccharide, PPSV23 (PNEUMOVAX) 2019-05-07 00:00:00 Completed [facility] TDAP 2019-05-07 00:00:00 Completed [facility] Influenza Virus Vaccine Quad .5 mL IM 6+ MO 2019-05-07 00:00:00 Completed [facility] Pneumococcal Polysaccharide, PPSV23 (PNEUMOVAX) 2019-05-07 00:00:00 Completed [facility] TDAP 2019-05-07 00:00:00 Completed [facility] Influenza Virus Vaccine Quad .5 mL IM 6+ MO 2019-05-07 00:00:00 Completed [facility] Pneumococcal Polysaccharide, PPSV23 (PNEUMOVAX) 2019-05-07 00:00:00 Completed [facility] TDAP 2019-05-07 00:00:00 Completed [facility] Influenza Virus Vaccine Quad .5 mL IM 6+ MO 2019-05-07 00:00:00 Completed [facility] Pneumococcal Polysaccharide, PPSV23 (PNEUMOVAX) 2019-05-07 00:00:00 Completed [facility] TDAP 2019-05-07 00:00:00 Completed [facility] Influenza Virus Vaccine Quad .5 mL IM 6+ MO 2019-05-07 00:00:00 Completed [facility] Pneumococcal Polysaccharide, PPSV23 (PNEUMOVAX) 2019-05-07 00:00:00 Completed [facility] TDAP 2019-05-07 00:00:00 Completed [facility] Influenza Virus Vaccine Quad .5 mL IM 6+ MO 2019-05-07 00:00:00 Completed [facility] Pneumococcal Polysaccharide, PPSV23 (PNEUMOVAX) 2019-05-07 00:00:00 Completed [facility] TDAP 2019-05-07 00:00:00 Completed [facility] Influenza Virus Vaccine Quad .5 mL IM 6+ MO 2019-05-07 00:00:00 Completed [facility] Pneumococcal Polysaccharide, PPSV23 (PNEUMOVAX) 2019-05-07 00:00:00 Completed [facility] TDAP 2019-05-07 00:00:00 Completed [facility] Influenza Virus Vaccine Quad .5 mL IM 6+ MO 2019-05-07 00:00:00 Completed [facility] Pneumococcal Polysaccharide, PPSV23 (PNEUMOVAX) 2019-05-07 00:00:00 Completed [facility] TDAP 2019-05-07 00:00:00 Completed [facility] Influenza Virus Vaccine Quad .5 mL IM 6+ MO 2019-05-07 00:00:00 Completed [facility] Pneumococcal Polysaccharide, PPSV23 (PNEUMOVAX) 2019-05-07 00:00:00 Completed [facility] TDAP 2019-05-07 00:00:00 Completed [facility] Influenza Virus Vaccine Quad .5 mL IM 6+ MO 2019-05-07 00:00:00 Completed [facility] Pneumococcal Polysaccharide, PPSV23 (PNEUMOVAX) 2019-05-07 00:00:00 Completed [facility] TDAP 2019-05-07 00:00:00 Completed [facility] Influenza Virus Vaccine Quad .5 mL IM 6+ MO 2019-05-07 00:00:00 Completed [facility] Pneumococcal Polysaccharide, PPSV23 (PNEUMOVAX) 2019-05-07 00:00:00 Completed [facility] TDAP 2019-05-07 00:00:00 Completed [facility] Influenza Virus Vaccine Quad .5 mL IM 6+ MO 2019-05-07 00:00:00 Completed [facility] Pneumococcal Polysaccharide, PPSV23 (PNEUMOVAX) 2019-05-07 00:00:00 Completed [facility] TDAP 2019-05-07 00:00:00 Completed [facility] Influenza Virus Vaccine Quad .5 mL IM 6+ MO 2019-05-07 00:00:00 Completed [facility] Pneumococcal Polysaccharide, PPSV23 (PNEUMOVAX) 2019-05-07 00:00:00 Completed [facility] TDAP 2019-05-07 00:00:00 Completed [facility] Influenza Virus Vaccine Quad .5 mL IM 6+ MO 2019-05-07 00:00:00 Completed [facility] Pneumococcal Polysaccharide, PPSV23 (PNEUMOVAX) 2019-05-07 00:00:00 Completed [facility] TDAP 2019-05-07 00:00:00 Completed [facility] Influenza Virus Vaccine Quad .5 mL IM 6+ MO 2019-05-07 00:00:00 Completed [facility] Pneumococcal Polysaccharide, PPSV23 (PNEUMOVAX) 2019-05-07 00:00:00 Completed [facility] TDAP 2019-05-07 00:00:00 Completed [facility] Influenza Virus Vaccine Quad .5 mL IM 6+ MO 2019-05-07 00:00:00 Completed [facility] Pneumococcal Polysaccharide, PPSV23 (PNEUMOVAX) 2019-05-07 00:00:00 Completed [facility] TDAP 2019-05-07 00:00:00 Completed [facility] Influenza Virus Vaccine Quad .5 mL IM 6+ MO 2019-05-07 00:00:00 Completed [facility] Pneumococcal Polysaccharide, PPSV23 (PNEUMOVAX) 2019-05-07 00:00:00 Completed [facility] TDAP 2019-05-07 00:00:00 Completed [facility] Influenza Virus Vaccine Quad .5 mL IM 6+ MO 2019-05-07 00:00:00 Completed [facility] Pneumococcal Polysaccharide, PPSV23 (PNEUMOVAX) 2019-05-07 00:00:00 Completed [facility] TDAP 2019-05-07 00:00:00 Completed [facility] Influenza Virus Vaccine Quad .5 mL IM 6+ MO 2019-05-07 00:00:00 Completed [facility] Pneumococcal Polysaccharide, PPSV23 (PNEUMOVAX) 2019-05-07 00:00:00 Completed [facility] TDAP 2019-05-07 00:00:00 Completed [facility] Influenza Virus Vaccine Quad .5 mL IM 6+ MO 2019-05-07 00:00:00 Completed [facility] Pneumococcal Polysaccharide, PPSV23 (PNEUMOVAX) 2019-05-07 00:00:00 Completed [facility] TDAP 2019-05-07 00:00:00 Completed [facility] Influenza Virus Vaccine Quad .5 mL IM 6+ MO 2019-05-07 00:00:00 Completed [facility] Pneumococcal Polysaccharide, PPSV23 (PNEUMOVAX) 2019-05-07 00:00:00 Completed [facility] TDAP 2019-05-07 00:00:00 Completed [facility] Influenza Virus Vaccine Quad .5 mL IM 6+ MO 2019-05-07 00:00:00 Completed [facility] Pneumococcal Polysaccharide, PPSV23 (PNEUMOVAX) 2019-05-07 00:00:00 Completed [facility] TDAP 2019-05-07 00:00:00 Completed [facility] Influenza Virus Vaccine Quad .5 mL IM 6+ MO 2019-05-07 00:00:00 Completed [facility] Pneumococcal Polysaccharide, PPSV23 (PNEUMOVAX) 2019-05-07 00:00:00 Completed [facility] TDAP 2019-05-07 00:00:00 Completed [facility] Influenza Virus Vaccine Quad .5 mL IM 6+ MO 2019-05-07 00:00:00 Completed [facility] Pneumococcal Polysaccharide, PPSV23 (PNEUMOVAX) 2019-05-07 00:00:00 Completed [facility] TDAP 2019-05-07 00:00:00 Completed [facility] Influenza Virus Vaccine Quad .5 mL IM 6+ MO 2019-05-07 00:00:00 Completed [facility] Pneumococcal Polysaccharide, PPSV23 (PNEUMOVAX) 2019-05-07 00:00:00 Completed [facility] TDAP 2019-05-07 00:00:00 Completed [facility] Influenza Virus Vaccine Quad .5 mL IM 6+ MO 2019-05-07 00:00:00 Completed [facility] Pneumococcal Polysaccharide, PPSV23 (PNEUMOVAX) 2019-05-07 00:00:00 Completed [facility] TDAP 2019-05-07 00:00:00 Completed [facility] Influenza Virus Vaccine Quad .5 mL IM 6+ MO 2019-05-07 00:00:00 Completed [facility] Pneumococcal Polysaccharide, PPSV23 (PNEUMOVAX) 2019-05-07 00:00:00 Completed [facility] TDAP 2019-05-07 00:00:00 Completed [facility] Influenza Virus Vaccine Quad .5 mL IM 6+ MO 2019-05-07 00:00:00 Completed [facility] Pneumococcal Polysaccharide, PPSV23 (PNEUMOVAX) 2019-05-07 00:00:00 Completed [facility] TDAP 2019-05-07 00:00:00 Completed [facility] Influenza Virus Vaccine Quad .5 mL IM 6+ MO 2019-05-07 00:00:00 Completed [facility] Pneumococcal Polysaccharide, PPSV23 (PNEUMOVAX) 2019-05-07 00:00:00 Completed [facility] TDAP 2019-05-07 00:00:00 Completed [facility] Influenza Virus Vaccine Quad .5 mL IM 6+ MO 2019-05-07 00:00:00 Completed [facility] Pneumococcal Polysaccharide, PPSV23 (PNEUMOVAX) 2019-05-07 00:00:00 Completed [facility] TDAP 2019-05-07 00:00:00 Completed [facility] Influenza Virus Vaccine Quad .5 mL IM 6+ MO 2019-05-07 00:00:00 Completed [facility] Pneumococcal Polysaccharide, PPSV23 (PNEUMOVAX) 2019-05-07 00:00:00 Completed [facility] TDAP 2019-05-07 00:00:00 Completed [facility] Influenza Virus Vaccine Quad .5 mL IM 6+ MO 2019-05-07 00:00:00 Completed [facility] Pneumococcal Polysaccharide, PPSV23 (PNEUMOVAX) 2019-05-07 00:00:00 Completed [facility] TDAP 2019-05-07 00:00:00 Completed [facility] Influenza Virus Vaccine Quad .5 mL IM 6+ MO 2019-05-07 00:00:00 Completed [facility] Pneumococcal Polysaccharide, PPSV23 (PNEUMOVAX) 2019-05-07 00:00:00 Completed [facility] TDAP 2019-05-07 00:00:00 Completed [facility] Influenza Virus Vaccine Quad .5 mL IM 6+ MO 2019-05-07 00:00:00 Completed [facility] Pneumococcal Polysaccharide, PPSV23 (PNEUMOVAX) 2019-05-07 00:00:00 Completed [facility] TDAP 2019-05-07 00:00:00 Completed [facility] Influenza Virus Vaccine Quad .5 mL IM 6+ MO (FLUZONE/FLULAVAL/F LUARIX) 2019-05-07 00:00:00 Completed [facility] Pneumococcal Polysaccharide, PPSV23 (PNEUMOVAX) 2019-05-07 00:00:00 Completed [facility] TDAP Unknown Completed [facility] Influenza Virus Vaccine Quad .5 mL IM 6+ MO (FLUZONE/FLULAVAL/F LUARIX) Unknown Completed [facility] Pneumococcal Polysaccharide, PPSV23 (PNEUMOVAX) Unknown Completed [facility] TDAP Unknown Completed [facility] Influenza Virus Vaccine Quad .5 mL IM 6+ MO (FLUZONE/FLULAVAL/F LUARIX) Unknown Completed [facility] Pneumococcal Polysaccharide, PPSV23 (PNEUMOVAX) Unknown Completed [facility] Influenza Virus Vaccine Quad IM, Preserv and ABX Free 6 MO-64 YRS (FLUCELVAX) Unknown Completed [facility] Pneumococcal 20 Conjugate, PCV20 (Prevnar 20) Unknown Completed [facility] TDAP Unknown Completed [facility] Influenza Virus Vaccine Quad .5 mL IM 6+ MO (FLUZONE/FLULAVAL/F LUARIX) Unknown Completed [facility] Pneumococcal Polysaccharide, PPSV23 (PNEUMOVAX) Unknown Completed [facility] Influenza Virus Vaccine Quad IM, Preserv and ABX Free 6 MO-64 YRS (FLUCELVAX) Unknown Completed [facility] Pneumococcal 20 Conjugate, PCV20 (Prevnar 20) Unknown Completed [facility] TDAP Unknown Completed [facility] Influenza Virus Vaccine Quad .5 mL IM 6+ MO (FLUZONE/FLULAVAL/F LUARIX) Unknown Completed [facility] Pneumococcal Polysaccharide, PPSV23 (PNEUMOVAX) Unknown Completed [facility] Influenza Virus Vaccine Quad IM, Preserv and ABX Free 6 MO-64 YRS (FLUCELVAX) Unknown Completed [facility] Pneumococcal 20 Conjugate, PCV20 (Prevnar 20) Unknown Completed [facility] TDAP Unknown Completed [facility] Influenza Virus Vaccine Quad .5 mL IM 6+ MO (FLUZONE/FLULAVAL/F LUARIX) Unknown Completed [facility] Pneumococcal Polysaccharide, PPSV23 (PNEUMOVAX) Unknown Completed [facility] Influenza Virus Vaccine Quad IM, Preserv and ABX Free 6 MO-64 YRS (FLUCELVAX) Unknown Completed [facility] Pneumococcal 20 Conjugate, PCV20 (Prevnar 20) Unknown Completed [facility] TDAP Unknown Completed [facility] Influenza Virus Vaccine Quad .5 mL IM 6+ MO (FLUZONE/FLULAVAL/F LUARIX) Unknown Completed [facility] Pneumococcal Polysaccharide, PPSV23 (PNEUMOVAX) Unknown Completed [facility] Influenza Virus Vaccine Quad IM, Preserv and ABX Free 6 MO-64 YRS (FLUCELVAX) Unknown Completed [facility] Pneumococcal 20 Conjugate, PCV20 (Prevnar 20) Unknown Completed [facility] TDAP Unknown Completed [facility] Influenza Virus Vaccine Quad .5 mL IM 6+ MO (FLUZONE/FLULAVAL/F LUARIX) Unknown Completed [facility] Pneumococcal Polysaccharide, PPSV23 (PNEUMOVAX) Unknown Completed [facility] Influenza Virus Vaccine Quad IM, Preserv and ABX Free 6 MO-64 YRS (FLUCELVAX) Unknown Completed [facility] Pneumococcal 20 Conjugate, PCV20 (Prevnar 20) Unknown Completed [facility] TDAP Unknown Completed [facility] Influenza Virus Vaccine Quad .5 mL IM 6+ MO (FLUZONE/FLULAVAL/F LUARIX) Unknown Completed [facility] Pneumococcal Polysaccharide, PPSV23 (PNEUMOVAX) Unknown Completed [facility] Influenza Virus Vaccine Quad IM, Preserv and ABX Free 6 MO-64 YRS (FLUCELVAX) Unknown Completed [facility] Pneumococcal 20 Conjugate, PCV20 (Prevnar 20) Unknown Completed [facility] TDAP Unknown Completed [facility] Influenza Virus Vaccine Quad .5 mL IM 6+ MO (FLUZONE/FLULAVAL/F LUARIX) Unknown Completed [facility] Pneumococcal Polysaccharide, PPSV23 (PNEUMOVAX) Unknown Completed [facility] Influenza Virus Vaccine Quad IM, Preserv and ABX Free 6 MO-64 YRS (FLUCELVAX) Unknown Completed [facility] Pneumococcal 20 Conjugate, PCV20 (Prevnar 20) Unknown Completed [facility] TDAP Unknown Completed [facility] Influenza Virus Vaccine Quad .5 mL IM 6+ MO (FLUZONE/FLULAVAL/F LUARIX) Unknown Completed [facility] Pneumococcal Polysaccharide, PPSV23 (PNEUMOVAX) Unknown Completed [facility] Influenza Virus Vaccine Quad IM, Preserv and ABX Free 6 MO-64 YRS (FLUCELVAX) Unknown Completed [facility] Pneumococcal 20 Conjugate, PCV20 (Prevnar 20) Unknown Completed [facility] TDAP Unknown Completed [facility] Influenza Virus Vaccine Quad .5 mL IM 6+ MO (FLUZONE/FLULAVAL/F LUARIX) Unknown Completed [facility] Pneumococcal Polysaccharide, PPSV23 (PNEUMOVAX) Unknown Completed [facility] Influenza Virus Vaccine Quad IM, Preserv and ABX Free 6 MO-64 YRS (FLUCELVAX) Unknown Completed [facility] Pneumococcal 20 Conjugate, PCV20 (Prevnar 20) Unknown Completed [facility] TDAP Unknown Completed [facility] Influenza Virus Vaccine Quad .5 mL IM 6+ MO (FLUZONE/FLULAVAL/F LUARIX) Unknown Completed [facility] Pneumococcal Polysaccharide, PPSV23 (PNEUMOVAX) Unknown Completed [facility] Influenza Virus Vaccine Quad IM, Preserv and ABX Free 6 MO-64 YRS (FLUCELVAX) Unknown Completed [facility] Pneumococcal 20 Conjugate, PCV20 (Prevnar 20) Unknown Completed [facility] TDAP Unknown Completed [facility] Influenza Virus Vaccine Quad .5 mL IM 6+ MO (FLUZONE/FLULAVAL/F LUARIX) Unknown Completed [facility] Pneumococcal Polysaccharide, PPSV23 (PNEUMOVAX) Unknown Completed [facility] Influenza Virus Vaccine Quad IM, Preserv and ABX Free 6 MO-64 YRS (FLUCELVAX) Unknown Completed [facility] Pneumococcal 20 Conjugate, PCV20 (Prevnar 20) Unknown Completed [facility] TDAP Unknown Completed [facility] Influenza Virus Vaccine Quad .5 mL IM 6+ MO (FLUZONE/FLULAVAL/F LUARIX) Unknown Completed [facility] Pneumococcal Polysaccharide, PPSV23 (PNEUMOVAX) Unknown Completed [facility] Influenza Virus Vaccine Quad IM, Preserv and ABX Free 6 MO-64 YRS (FLUCELVAX) Unknown Completed [facility] Pneumococcal 20 Conjugate, PCV20 (Prevnar 20) Unknown Completed [facility] TDAP Unknown Completed [facility] Influenza Virus Vaccine Quad .5 mL IM 6+ MO (FLUZONE/FLULAVAL/F LUARIX) Unknown Completed [facility] Pneumococcal Polysaccharide, PPSV23 (PNEUMOVAX) Unknown Completed [facility] Influenza Virus Vaccine Quad IM, Preserv and ABX Free 6 MO-64 YRS (FLUCELVAX) Unknown Completed [facility] Pneumococcal 20 Conjugate, PCV20 (Prevnar 20) Unknown Completed [facility] TDAP Unknown Completed [facility] Influenza Virus Vaccine Quad .5 mL IM 6+ MO (FLUZONE/FLULAVAL/F LUARIX) Unknown Completed [facility] Pneumococcal Polysaccharide, PPSV23 (PNEUMOVAX) Unknown Completed [facility] Influenza Virus Vaccine Quad IM, Preserv and ABX Free 6 MO-64 YRS (FLUCELVAX) Unknown Completed [facility] Pneumococcal 20 Conjugate, PCV20 (Prevnar 20) Unknown [facility] [facility] Unknown Completed [facility] Influenza Virus Vaccine Quad .5 mL IM 6+ MO (FLUZONE/FLULAVAL/F LUARIX) Unknown Completed [facility] Pneumococcal Polysaccharide, PPSV23 (PNEUMOVAX) Unknown Completed [facility] Influenza Virus Vaccine Quad IM, Preserv and ABX Free 6 MO-64 YRS (FLUCELVAX) Unknown Completed [facility] Pneumococcal 20 Conjugate, PCV20 (Prevnar 20) Unknown Completed [facility] TDAP Unknown Completed [facility] Influenza Virus Vaccine Quad .5 mL IM 6+ MO (FLUZONE/FLULAVAL/F LUARIX) Unknown Completed [facility] Pneumococcal Polysaccharide, PPSV23 (PNEUMOVAX) Unknown Completed [facility] Influenza Virus Vaccine Quad IM, Preserv and ABX Free 6 MO-64 YRS (FLUCELVAX) Unknown Completed [facility] Pneumococcal 20 Conjugate, PCV20 (Prevnar 20) Unknown Completed [facility] TDAP Unknown Completed [facility] Influenza Virus Vaccine Quad .5 mL IM 6+ MO (FLUZONE/FLULAVAL/F LUARIX) Unknown Completed [facility] Pneumococcal Polysaccharide, PPSV23 (PNEUMOVAX) Unknown Completed [facility] Influenza Virus Vaccine Quad IM, Preserv and ABX Free 6 MO-64 YRS (FLUCELVAX) Unknown Completed [facility] Pneumococcal 20 Conjugate, PCV20 (Prevnar 20) Unknown Completed [facility] TDAP Unknown Completed [facility] Influenza Virus Vaccine Quad .5 mL IM 6+ MO (FLUZONE/FLULAVAL/F LUARIX) Unknown Completed [facility] Pneumococcal Polysaccharide, PPSV23 (PNEUMOVAX) Unknown Completed [facility] Influenza Virus Vaccine Quad IM, Preserv and ABX Free 6 MO-64 YRS (FLUCELVAX) Unknown Completed [facility] Pneumococcal 20 Conjugate, PCV20 (Prevnar 20) Unknown Completed [facility] TDAP Unknown Completed [facility] Influenza Virus Vaccine Quad .5 mL IM 6+ MO (FLUZONE/FLULAVAL/F LUARIX) Unknown Completed [facility] Pneumococcal Polysaccharide, PPSV23 (PNEUMOVAX) Unknown Completed [facility] Influenza Virus Vaccine Quad IM, Preserv and ABX Free 6 MO-64 YRS (FLUCELVAX) Unknown Completed [facility] Pneumococcal 20 Conjugate, PCV20 (Prevnar 20) Unknown Completed [facility] TDAP Unknown Completed [facility] Influenza Virus Vaccine Quad .5 mL IM 6+ MO (FLUZONE/FLULAVAL/F LUARIX) Unknown Completed [facility] Pneumococcal Polysaccharide, PPSV23 (PNEUMOVAX) Unknown Completed [facility] Influenza Virus Vaccine Quad IM, Preserv and ABX Free 6 MO-64 YRS (FLUCELVAX) Unknown Completed [facility] Pneumococcal 20 Conjugate, PCV20 (Prevnar 20) Unknown Completed [facility] TDAP Unknown Completed [facility] Influenza Virus Vaccine Quad .5 mL IM 6+ MO (FLUZONE/FLULAVAL/F LUARIX) Unknown Completed [facility] Pneumococcal Polysaccharide, PPSV23 (PNEUMOVAX) Unknown Completed [facility] Influenza Virus Vaccine Quad IM, Preserv and ABX Free 6 MO-64 YRS (FLUCELVAX) Unknown Completed [facility] Pneumococcal 20 Conjugate, PCV20 (Prevnar 20) Unknown Completed [facility] TDAP Unknown Completed [facility] Influenza Virus Vaccine Quad .5 mL IM 6+ MO (FLUZONE/FLULAVAL/F LUARIX) Unknown Completed [facility] Pneumococcal Polysaccharide, PPSV23 (PNEUMOVAX) Unknown Completed [facility] Influenza Virus Vaccine Quad IM, Preserv and ABX Free 6 MO-64 YRS (FLUCELVAX) Unknown Completed [facility] Pneumococcal 20 Conjugate, PCV20 (Prevnar 20) Unknown Completed [facility] TDAP Unknown Completed [facility] Influenza Virus Vaccine Quad .5 mL IM 6+ MO (FLUZONE/FLULAVAL/F LUARIX) Unknown Completed [facility] Pneumococcal Polysaccharide, PPSV23 (PNEUMOVAX) Unknown Completed [facility] Influenza Virus Vaccine Quad IM, Preserv and ABX Free 6 MO-64 YRS (FLUCELVAX) Unknown Completed [facility] Pneumococcal 20 Conjugate, PCV20 (Prevnar 20) Unknown Completed [facility] TDAP Unknown Completed [facility] Influenza Virus Vaccine Quad .5 mL IM 6+ MO (FLUZONE/FLULAVAL/F LUARIX) Unknown Completed [facility] Pneumococcal Polysaccharide, PPSV23 (PNEUMOVAX) Unknown Completed [facility] Influenza Virus Vaccine Quad IM, Preserv and ABX Free 6 MO-64 YRS (FLUCELVAX) Unknown Completed [facility] Pneumococcal 20 Conjugate, PCV20 (Prevnar 20) Unknown Completed [facility] TDAP Unknown Completed [facility] Influenza Virus Vaccine Quad .5 mL IM 6+ MO (FLUZONE/FLULAVAL/F LUARIX) Unknown Completed [facility] Pneumococcal Polysaccharide, PPSV23 (PNEUMOVAX) Unknown Completed [facility] Influenza Virus Vaccine Quad IM, Preserv and ABX Free 6 MO-64 YRS (FLUCELVAX) Unknown Completed [facility] Pneumococcal 20 Conjugate, PCV20 (Prevnar 20) Unknown Completed [facility] TDAP Unknown Completed [facility] Influenza Virus Vaccine Quad .5 mL IM 6+ MO (FLUZONE/FLULAVAL/F LUARIX) Unknown Completed [facility] Pneumococcal Polysaccharide, PPSV23 (PNEUMOVAX) Unknown Completed [facility] Influenza Virus Vaccine Quad IM, Preserv and ABX Free 6 MO-64 YRS (FLUCELVAX) Unknown Completed [facility] Pneumococcal 20 Conjugate, PCV20 (Prevnar 20) Unknown Completed [facility] TDAP Unknown Completed [facility] Influenza Virus Vaccine Quad .5 mL IM 6+ MO (FLUZONE/FLULAVAL/F LUARIX) Unknown Completed [facility] Pneumococcal Polysaccharide, PPSV23 (PNEUMOVAX) Unknown Completed [facility] Influenza Virus Vaccine Quad IM, Preserv and ABX Free 6 MO-64 YRS (FLUCELVAX) Unknown Completed [facility] Pneumococcal 20 Conjugate, PCV20 (Prevnar 20) Unknown Completed [facility] TDAP Unknown Completed [facility] Influenza Virus Vaccine Quad .5 mL IM 6+ MO (FLUZONE/FLULAVAL/F LUARIX) Unknown Completed [facility] Pneumococcal Polysaccharide, PPSV23 (PNEUMOVAX) Unknown Completed [facility] Influenza Virus Vaccine Quad IM, Preserv and ABX Free 6 MO-64 YRS (FLUCELVAX) Unknown Completed [facility] Pneumococcal 20 Conjugate, PCV20 (Prevnar 20) Unknown Completed [facility] TDAP Unknown Completed [facility] Influenza Virus Vaccine Quad .5 mL IM 6+ MO (FLUZONE/FLULAVAL/F LUARIX) Unknown Completed [facility] Pneumococcal Polysaccharide, PPSV23 (PNEUMOVAX) Unknown Completed [facility] Influenza Virus Vaccine Quad IM, Preserv and ABX Free 6 MO-64 YRS (FLUCELVAX) Unknown Completed [facility] Pneumococcal 20 Conjugate, PCV20 (Prevnar 20) Unknown Completed [facility] Vital Signs Vital Name Observation Time Observation Value Comments 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 Systolic blood pressure 2023-10-03 20:43:00 107 mm[Hg] [facility] Diastolic blood pressure 2023-10-03 20:43:00 67 mm[Hg] [facility] Heart rate 2023-10-03 20:43:00 97 /min [facility] Body temperature 2023-10-03 20:43:00 36.56 Sonali [facility] Respiratory rate 2023-10-03 20:43:00 18 /min [facility] Body height 2023-10-03 20:43:00 180.3 cm [facility] Body weight 2023-10-03 20:43:00 110.678 kg [facility] BMI 2023-10-03 20:43:00 34.03 kg/m2 [facility] Oxygen saturation in Arterial blood by Pulse oximetry 2023-10-03 20:43:00 93 /min [facility] Respiratory rate 2023-08-18 18:10:00 16 /min [facility] Body height 2023-08-18 18:10:00 180.3 cm [facility] Body weight 2023-08-18 18:10:00 110.678 kg [facility] BMI 2023-08-18 18:10:00 34.03 kg/m2 [facility] Systolic blood pressure 2023-07-08 20:39:00 124 mm[Hg] [facility] Diastolic blood pressure 2023-07-08 20:39:00 89 mm[Hg] [facility] Heart rate 2023-07-08 20:39:00 81 /min [facility] Respiratory rate 2023-07-08 20:39:00 18 /min [facility] Body height 2023-07-08 20:39:00 180.3 cm [facility] Body weight 2023-07-08 20:39:00 110.678 kg [facility] BMI 2023-07-08 20:39:00 34.03 kg/m2 [facility] Oxygen saturation in Arterial blood by Pulse oximetry 2023-07-08 20:39:00 94 /min [facility] BMI 2023-06-24 16:59:00 34.23 kg/m2 [facility] Oxygen saturation in Arterial blood by Pulse oximetry 2023-06-24 16:59:00 95 /min [facility] Systolic blood pressure 2023-06-24 16:59:00 118 mm[Hg] [facility] Diastolic blood pressure 2023-06-24 16:59:00 89 mm[Hg] [facility] Heart rate 2023-06-24 16:59:00 100 /min [facility] Body temperature 2023-06-24 16:59:00 36.22 Sonali [facility] Respiratory rate 2023-06-24 16:59:00 18 /min [facility] Body height 2023-06-24 16:59:00 180.3 cm [facility] Body weight 2023-06-24 16:59:00 111.313 kg [facility] Systolic blood pressure 2023-06-24 16:16:00 122 mm[Hg] [facility] Diastolic blood pressure 2023-06-24 16:16:00 87 mm[Hg] [facility] Heart rate 2023-06-24 16:16:00 104 /min [facility] Body temperature 2023-06-24 16:16:00 37.22 Sonali [facility] Respiratory rate 2023-06-24 16:16:00 18 /min [facility] Body height 2023-06-24 16:16:00 180.3 cm [facility] Body weight 2023-06-24 16:16:00 111.948 kg [facility] BMI 2023-06-24 16:16:00 34.42 kg/m2 [facility] Oxygen saturation in Arterial blood by Pulse oximetry 2023-06-24 16:16:00 94 /min [facility] Systolic blood pressure 2023-04-04 20:47:00 126 mm[Hg] [facility] Diastolic blood pressure 2023-04-04 20:47:00 82 mm[Hg] [facility] Heart rate 2023-04-04 20:46:00 95 /min [facility] Body temperature 2023-04-04 20:46:00 36.83 Sonali [facility] Respiratory rate 2023-04-04 20:46:00 16 /min [facility] Body height 2023-04-04 20:46:00 180.3 cm [facility] 2023-04-04 20:46:00 112.401 kg [facility] BMI 2023-04-04 20:46:00 34.56 kg/m2 [facility] Oxygen saturation in Arterial blood by Pulse oximetry 2023-04-04 20:46:00 95 /min [facility] Systolic blood pressure 2022-10-01 21:04:00 116 mm[Hg] [facility] Diastolic blood pressure 2022-10-01 21:04:00 82 mm[Hg] [facility] Heart rate 2022-10-01 21:02:00 112 /min [facility] Respiratory rate 2022-10-01 21:02:00 18 /min [facility] Body height 2022-10-01 21:02:00 180.3 cm [facility] Body weight 2022-10-01 21:02:00 113.853 kg [facility] BMI 2022-10-01 21:02:00 35.01 kg/m2 [facility] Oxygen saturation in Arterial blood by Pulse oximetry 2022-10-01 21:02:00 96 /min [facility] Systolic blood pressure 2022-07-27 20:34:00 134 mm[Hg] [facility] Diastolic blood pressure 2022-07-27 20:34:00 86 mm[Hg] [facility] Heart rate 2022-07-27 20:34:00 87 /min [facility] Body temperature 2022-07-27 20:34:00 36.78 Sonali [facility] Respiratory rate 2022-07-27 20:34:00 18 /min [facility] Body height 2022-07-27 20:34:00 180.3 cm [facility] Body weight 2022-07-27 20:34:00 113.853 kg [facility] BMI 2022-07-27 20:34:00 35.01 kg/m2 [facility] Oxygen saturation in Arterial blood by Pulse oximetry 2022-07-27 20:34:00 98 /min [facility] Systolic blood pressure 2022-07-11 19:39:00 114 mm[Hg] [facility] Diastolic blood pressure 2022-07-11 19:39:00 81 mm[Hg] [facility] Heart rate 2022-07-11 19:39:00 91 /min [facility] Body temperature 2022-07-11 19:39:00 37.11 Sonali [facility] Respiratory rate 2022-07-11 19:39:00 18 /min [facility] Body height 2022-07-11 19:39:00 180.3 cm [facility] Body weight 2022-07-11 19:39:00 112.492 kg [facility] BMI 2022-07-11 19:39:00 34.59 kg/m2 [facility] Oxygen saturation in Arterial blood by Pulse oximetry 2022-07-11 19:39:00 97 /min [facility] Systolic blood pressure 2022-06-13 16:17:00 110 mm[Hg] [facility] Diastolic blood pressure 2022-06-13 16:17:00 77 mm[Hg] [facility] Heart rate 2022-06-13 16:17:00 100 /min [facility] Body temperature 2022-06-13 16:17:00 36.5 Sonali [facility] Respiratory rate 2022-06-13 16:17:00 18 /min [facility] Body height 2022-06-13 16:17:00 180.3 cm [facility] Body weight 2022-06-13 16:17:00 112.628 kg [facility] BMI 2022-06-13 16:17:00 34.63 kg/m2 [facility] Oxygen saturation in Arterial blood by Pulse oximetry 2022-06-13 16:17:00 95 /min [facility] Systolic blood pressure 2022-05-19 21:43:00 129 mm[Hg] [facility] Diastolic blood pressure 2022-05-19 21:43:00 89 mm[Hg] [facility] Heart rate 2022-05-19 21:43:00 98 /min [facility] Body temperature 2022-05-19 21:43:00 36.78 Sonali [facility] Respiratory rate 2022-05-19 21:43:00 18 /min [facility] Body height 2022-05-19 21:43:00 180.3 cm [facility] Body weight 2022-05-19 21:43:00 112.719 kg [facility] BMI 2022-05-19 21:43:00 34.66 kg/m2 [facility] Oxygen saturation in Arterial blood by Pulse oximetry 2022-05-19 21:43:00 95 /min [facility] Systolic blood pressure 2022-05-10 21:16:00 111 mm[Hg] [facility] Diastolic blood pressure 2022-05-10 21:16:00 78 mm[Hg] [facility] Heart rate 2022-05-10 21:16:00 108 /min [facility] Body temperature 2022-05-10 21:16:00 36.72 Sonali [facility] Respiratory rate 2022-05-10 21:16:00 18 /min [facility] Body weight 2022-05-10 21:16:00 111.313 kg [facility] BMI 2022-05-10 21:16:00 34.23 kg/m2 [facility] Oxygen saturation in Arterial blood by Pulse oximetry 2022-05-10 21:16:00 95 /min [facility] Systolic blood pressure 2022-04-03 17:56:00 112 mm[Hg] [facility] Diastolic blood pressure 2022-04-03 17:56:00 79 mm[Hg] [facility] Heart rate 2022-04-03 17:56:00 105 /min [facility] Body temperature 2022-04-03 17:56:00 36.67 Sonali [facility] Respiratory rate 2022-04-03 17:56:00 18 /min [facility] Body height 2022-04-03 17:56:00 180.3 cm [facility] Body weight 2022-04-03 17:56:00 110.995 kg [facility] BMI 2022-04-03 17:56:00 34.13 kg/m2 [facility] Oxygen saturation in Arterial blood by Pulse oximetry 2022-04-03 17:56:00 95 /min [facility] Procedures Procedure Date / Time Performed Performing Clinician Source EXTERNAL PROVIDER RECORDS 2023-07-14 06:01:00 Doctor Unassigned, [place] [facility] MYOCARDIUM PERFUSION STRESS AND REST 2023-07-08 19:46:00 Boris Esquivel [facility] MYOCARDIUM PERFUSION STRESS AND REST 2023-07-08 19:46:00 Boris Esquivel [facility] MYOCARDIUM PERFUSION STRESS AND REST 2023-07-08 19:46:00 Boris Esquivel [facility] MYOCARDIUM PERFUSION STRESS AND REST 2023-07-08 19:46:00 Boris Esquivel [facility] TRANSTHORACIC ECHO (TTE) COMPLETE W/ CONTRAST 2023-07-08 15:36:00 Boris Esquivel [facility] HB ECG ROUTINE & RHYTHM STRIP 2023-06-24 16:21:01 Boris Esquivel [facility] CONSENT/REFUSAL FOR DIAGNOSIS AND TREATMENT 2023-06-24 15:50:31 Doctor Unassigned, [place] [facility] EXTERNAL PROVIDER RECORDS 2022-12-23 05:01:00 Doctor Unassigned, [place] [facility] ASSIGNMENT OF BENEFITS 2022-06-13 15:51:12 Docto r Unassigned, [place] [facility] US ELASTOGRAPHY BASE FUNCT 2022-04-03 15:24:00 Rianna Varela [facility] US ABDOMEN LIMITED 2022-04-03 15:14:00 Charles Varela [facility] Encounters Start Date/Time End Date/Time Encounter Type Admission Type Attending [facility] Care Facility Care Department Encounter ID Source 2021-06-12 07:37:44 Emergency [facility] [id number] [facility] 2021-06-10 00:56:26 Emergency [facility] [id number] [facility] 2021-06-07 18:23:00 Emergency [facility] [id number] [facility] 2024-04-02 13:00:00 2024-04-02 13:00:00 Outpatient R RIANNA VARELA [facility] [id number] [facility] 2023-12-12 00:00:00 2023-12-12 00:00:00 Refill Boris Esquivel [place] [id number] 350.1.13.10 4.2.7.2.[id number] [facility] 2023-12-01 00:00:00 2023-12-01 00:00:00 Refill Rianna Varela [facility] [id number] 350.1.13.10 4.2.7.2.[id number] [facility] 2023-11-26 00:00:00 2023-11-26 00:00:00 Telephone Boris Esquivel [facility] 1.2.840.114 350.1.13.10 4.2.7.2.[id number] [facility] 2023-11-18 00:00:00 2023-11-18 00:00:00 Refill Rianna Varela [facility] [id number] 350.1.13.10 4.2.7.2.[id number] [facility] 2023-11-17 11:45:00 2023-11-17 11:45:00 [id number] 2023-10-06 00:00:00 2023-10-06 00:00:00 Patient Secure Msg Doctor Unassigned, [place] [facility] 1..840.114 350.1.13.10 4.2.7.2.[id number] [facility] 2023-10-03 14:40:00 2023-10-03 15:05:03 Outpatient M[facility] [id number] [facility] 2023-10-03 14:40:00 2023-10-03 15:05:03 Office Visit Jori Andersonma [facility] [id number] 350.1.13.10 4.2.7.2.[id number] [facility] 2023-08-18 12:15:00 2023-08-18 12:30:00 Office Visit Salomón See [facility] 1.2.840.114 350.1.13.10 4.2.7.2.[id number] [facility] 2023-08-18 12:15:00 2023-08-18 12:15:00 Outpatient SALOMÓN GOLDSTEIN [facility] [id number] [facility] 2023-08-09 00:00:00 2023-08-09 00:00:00 Refill [facility] 1.2.840.114 350.1.13.10 4.2.7.2.[id number] [facility] 2023-07-15 00:00:00 2023-07-15 00:00:00 Telephone Boris Esquivel [facility] 1.2.840.114 350.1.13.10 4.2.7.2.[id number] [facility] 2023-07-14 00:00:00 2023-07-14 00:00:00 Orders Only Doctor Unassigned, [place] [facility] 1.2.840.114 350.1.13.10 4.2.7.2.[id number] [facility] 2023-07-11 00:00:00 2023-07-11 00:00:00 Patient Secure Msg Doctor Unassigned, [place] [facility] 1.2.840.114 350.1.13.10 4.2.7.2.[id number] [facility] 2023-07-08 08:29:39 2023-07-08 23:59:00 Hospital Encounter Boris [facility]qu[facility] 1.2.840.114 350.1.13.10 4.2.7.2.[id number] [facility] 2023-07-08 15:00:00 2023-07-08 15:22:29 Office Visit Alise Levine [facility] 1.2.840.114 350.1.13.10 4.2.7.2.[id number] [facility] 2023-07-08 07:58:14 2023-07-08 08:28:00 Hospital Encounter Boris Esquivel [facility] 1.2.840.114 350.1.13.10 4.2.7.2.[id number] [facility] 2023-07-08 07:58:07 2023-07-08 08:28:00 Hospital Encounter Boris Esquivel [facility] 1.2.840.114 350.1.13.10 4.2.7.2.[id number] [facility] 2023-07-08 07:58:01 2023-07-08 08:28:00 Hospital Encounter Boris Esquivel [facility] 1.20.114 350.1.13.10 4.2.7.2.[id number] [facility] 2023-07-08 07:57:51 2023-07-08 07:57:51 [id number] 2023-07-08 07:57:51 2023-07-08 07:57:51 [facility] 1.20.114 350.1.13.10 4.2.7.2.[id number] [facility] 2023-07-06 12:50:42 2023-07-06 23:59:00 Outpatient R ALISE LEVINE [facility] [id number] [facility] 2023-07-06 12:50:42 2023-07-06 23:59:00 Hospital Encounter Alise Levine [facility] 1.2840.114 350.1.13.10 4.2.7.2.[id number] [facility] 2023-06-25 00:00:00 2023-06-25 00:00:00 Telephone Alise Levine [facility] 1.2840.114 350.1.13.10 4.2.7.2.[id number] [facility] 2023-06-24 12:30:00 2023-06-24 12:30:00 Office Visit Alise Lev[facility] 1.2.840.114 350.1.13.10 4.2.7.2.[id number] [facility] 2023-06-24 10:00:00 2023-06-24 10:44:39 Outpatient R BORIS ESQUIVEL [facility] [id number] [facility] 2023-06-24 10:00:00 2023-06-24 10:44:39 Office Visit Boris Esquivel [facility] 1.2.840.114 350.1.13.10 4.2.7.2.[id number] [facility] 2023-06-24 00:00:00 2023-06-24 00:00:00 Orders Only Doctor Unassigned, [place] [facility] 1.2840.114 350.1.13.10 4.2.7.2.[id number] [facility] 2023-05-16 13:00:00 2023-05-16 13:00:00 Outpatient R [facility] [id number] [facility] [facility] 2023-04-23 10:30:00 2023-04-23 10:52:12 Outpatient R RIANNA VARELA [facility] [id number] [facility] 2023-04-23 10:30:00 2023-04-23 10:45:00 Medical Billing Supervisor Visit 2, Adc Lab Rianna Varela [facility]ILD[facility] 1.2.840.114 350.1.13.10 4.2.7.2.[id number] [facility] 2023-04-04 15:40:00 2023-04-04 16:32:44 Outpatient R RIANNA VARELA [facility] [id number] [facility] 2023-04-04 15:40:00 2023-04-04 16:32:44 Office Visit Rianna Varela [facility] 1.2.840.114 350.1.13.10 4.2.7.2.[id number] [facility] 2023-03-29 00:00:00 2023-03-29 00:00:00 Refill Rianna Varela [facility] 1.2.840.114 350.1.13.10 4.2.7.2.[id number] [facility] 2023-03-21 00:00:00 2023-03-21 00:00:00 Refill Rianna Varela [facility] BU[facility] 1.2.840.114 350.1.13.10 4.2.7.2.[id number] [facility] 2023-02-21 00:00:00 2023-02-21 00:00:00 Refill Rianna Varela [facility] 1.2.840.114 350.1.13.10 4.2.7.2.[id number] [facility] 2023-02-18 00:00:00 2023-02-18 00:00:00 Refill Rianna Varela [facility] 1.2.840.114 350.1.13.10 4.2.7.2.[id number] [facility] 2022-12-23 00:00:00 2022-12-23 00:00:00 Orders Only Doctor Unassigned, [place] [facility] 1.2.840.114 350.1.13.10 4.2.7.2.[id number] [facility] 2022-12-16 00:00:00 2022-12-16 00:00:00 Telephone NicholeRianna [facility] 1.2.840.114 350.1.13.10 4.2.7.2.[id number] [facility] 2022-10-01 15:40:00 2022-10-01 16:16:22 Outpatient R NAYANA TAYLOR OGECHUKWU [facility] [id number] [facility] 2022-10-01 15:40:00 2022-10-01 16:16:22 Office Visit Rianna Varela Ogechukwu [facility] BUILD[facility] 1.2.840.114 350.1.13.10 4.2.7.2.[id number] [facility] 2022-09-30 14:45:00 2022-09-30 15:00:00 Medical Billing Supervisor Visit 2, Adc Lab Rianna Varela [facility] BU[facility] 1.2.840.114 350.1.13.10 4.2.7.2.[id number] [facility] 2022-09-30 14:45:00 2022-09-30 14:45:00 Outpatient R RIANNA VARELA [facility] [id number] [facility] 2022-09-30 00:00:00 2022-09-30 00:00:00 Telephone Rianna Varela [facility] 1.2.840.114 350.1.13.10 4.2.7.2.[id number] [facility] 2022-09-29 00:00:00 2022-09-29 00:00:00 Refill Rianna [facility]arela [facility] 1.2.840.114 350.1.13.10 4.2.7.2.[id number] [facility] 2022-09-29 00:00:00 2022-09-29 00:00:00 Refill Rianna Varela [facility] 1.2.840.114 350.1.13.10 4.2.7.2.[id number] [facility] 2022-08-26 00:00:00 2022-08-26 00:00:00 Refill Rianna Varela [facility] 1.2.840.114 350.1.13.10 4.2.7.2.[id number] [facility] 2022-08-23 16:30:00 2022-08-23 17:00:00 Telemedici ne Visit Nayana Taylor [facility] 1.2.840.114 350.1.13.10 4.2.7.2.[id number] [facility] 2022-08-23 16:30:00 2022-08-23 16:30:00 Outpatient R NAYANA TAYLOR OGECHUKWU [facility] [id number] [facility] 2022-08-19 10:00:00 2022-08-19 10:15:00 Medical Billing Supervisor Visit 2, Adc Lab Rianna Varela [facility] 1.2.840.114 350.1.13.10 4.2.7.2.[id number] [facility] 2022-08-19 10:00:00 2022-08-19 10:00:00 Outpatient R RIANNA VARELA [facility] [id number] [facility] 2022-08-09 13:00:00 2022-08-09 13:00:00 Outpatient R RIANNA VARELA [facility] [id number] [facility] 2022-07-29 00:00:00 2022-07-29 00:00:00 Telephone Rianna Varela [facility] 1..840.114 350.1.13.10 4.2.7.2.[id number] [facility] 2022-07-27 14:40:00 2022-07-27 14:50:52 Outpatient R HIRA HEDRICK [facility] [id number] [facility] 2022-07-27 14:40:00 2022-07-27 14:50:52 Urgent Care Hira Hedrick Unknown, Attending [facility]RADHA [facility] 1..840.114 350.1.13.10 4.2.7.2.[id number] [facility] 2022-07-11 13:20:00 2022-07-11 14:06:52 Outpatient R RIANNA VARELA [facility] [id number] [facility] 2022-07-11 13:20:00 2022-07-11 14:06:52 Office Visit JorgeeitanaungRianna mckenzie [facility]ILD[facility] 1..840.114 350.1.13.10 4.2.7.2.[id number] [facility] 2022-07-03 15:30:00 2022-07-03 15:45:00 Medical Billing Supervisor Visit 2, Adc Lab Rianna Varela [facility] 1..840.114 350.1.13.10 4.2.7.2.[id number] [facility] 2022-07-03 15:30:00 2022-07-03 15:30:00 Outpatient R RIANNA VARELA [facility] [id number] [facility] 2022-06-13 10:40:00 2022-06-13 12:16:48 Outpatient R RIANNA VARELA [facility] [id number] [facility] 2022-06-13 10:40:00 2022-06-13 12:16:48 Office Visit Rianna Varela [facility] 1.2.840.114 350.1.13.10 4.2.7.2.[id number] [facility] 2022-06-13 00:00:00 2022-06-13 00:00:00 Orders Only Doctor Unassigned, [place] [facility] 1.2.840.114 350.1.13.10 4.2.7.2.[id number] [facility] 2022-06-07 13:00:00 2022-06-07 13:00:00 Outpatient R RIANNA VARELA [facility] [id number] [facility] 2022-06-03 14:20:00 2022-06-03 13:13:58 Outpatient R RIANNA VARELA [facility] [id number] [facility] 2022-06-03 11:45:00 2022-06-03 12:00:00 Medical Billing Supervisor Visit 2, Adc Lab Nichole [facility] BUILDING 1.2.840.114 350.1.13.10 4.2.7.2.[id number] [facility] 2022-05-28 00:00:00 2022-05-28 00:00:00 Telephone Rianna aVrela [facility] BUILD[facility] 1.2.840.114 350.1.13.10 4.2.7.2.[id number] [facility] 2022-05-23 00:00:00 2022-05-23 00:00:00 Telephone Rianna Varela [facility] BUILD[facility] 1.2.840.114 350.1.13.10 4.2.7.2.[id number] [facility] 2022-05-19 16:40:00 2022-05-19 16:55:03 Outpatient R [facility] [id number] [facility] 2022-05-19 16:40:00 2022-05-19 16:55:03 Urgent Care Eusebio, Linda [facility]inguezOn license of [facility] 1.2.840.114 350.1.13.10 4.2.7.2.[id number] [facility] 2022-05-15 00:00:00 2022-05-15 00:00:00 Refill Nichole [facility] BUILDING 1.2.840.114 350.1.13.10 4.2.7.2.[id number] [facility] 2022-05-10 15:40:00 2022-05-10 16:50:20 Outpatient R [facility] [id number] [facility] 2022-05-10 15:40:00 2022-05-10 16:50:20 Office Visit Jorgeyanni [facility] BUILDING 1.2.840.114 350.1.13.10 4.2.7.2.[id number] [facility] 2022-05-10 00:00:00 2022-05-10 00:00:00 Telephone Rianna Varela [facility] 1.2.840.114 350.1.13.10 4.2.7.2.[id number] [facility] 2022-05-01 00:00:00 2022-05-01 00:00:00 Telephone Rianna Varela [facility] 1.2.840.114 350.1.13.10 4.2.7.2.[id number] [facility] 2022-04-26 13:00:00 2022-04-26 13:00:00 Outpatient R RIANNA VARELA [facility] [id number] [facility] 2022-04-12 13:40:00 2022-04-12 13:40:00 Outpatient R NICHOLE [facility] [id number] [facility] 2022-04-03 09:43:06 2022-04-03 23:59:00 Hospital Encounter yanni [facility] ([facility]) 1..840.114 350.1.13.10 4.2.7.2.[id number] [facility] 2022-04-03 15:00:00 2022-04-03 15:00:00 Office Visit Rianna Varela [facility] BUILD[facility] 1.2.840.114 350.1.13.10 4.2.7.2.[id number] [facility] 2022-04-03 15:00:00 2022-04-03 13:59:53 Outpatient R NICHOLE [facility] [id number] [facility] 2022-04-03 09:42:34 2022-04-03 09:42:34 Outpatient R [facility]LE [facility] [id number] [facility] 2022-04-03 09:42:34 2022-04-03 09:42:34 [facility] 1..840.114 350.1.13.10 4.2.7.2.[id number] [facility] 2022-04-03 00:00:00 2022-04-03 00:00:00 Telephone Rianna Varela [facility] PROFESS[facility] 1.2.840.114 350.1.13.10 4.2.7.2.[id number] [facility] 2022-04-01 00:00:00 2022-04-01 00:00:00 Patient Secure Msg [facility] 1.2.840.114 350.1.13.10 4.2.7.2.[id number] [facility] 2022-04-01 00:00:00 2022-04-01 00:00:00 Telephone Nichole [facility] 1.2.840.114 350.1.13.10 4.2.7.2.[id number] [facility] 2022-03-29 14:05:00 2022-03-30 17:30:00 Outpatient X GABRIEL WINKLER [facility] [id number] [facility] 2022-03-29 14:05:00 2022-03-30 17:30:00 Emergency Rick [facility] 1.2.840.114 350.1.13.10 4.2.7.2.[id number] [facility] 2022-03-29 14:05:00 2022-03-29 14:05:00 Outpatient X GABRIEL WINKLER [email or web address] CARMEN [id number] [facility] 2022-03-28 14:20:00 2022-03-28 15:28:05 Outpatient R RIANNA VARELA [facility] [id number] [facility] 2022-03-28 14:20:00 2022-03-28 15:28:05 Office Visit Rianna Varela [facility] PROF[facility] BUILDING 1.2.840.114 350.1.13.10 4.2.7.2.[id number] [facility] 2022-03-28 14:20:00 2022-03-28 15:28:05 Outpatient R RIANNA VARELA [facility] [id number] [facility] 2022-03-28 00:00:00 2022-03-28 00:00:00 Telephone [facility]ianna [facility] 1.2.840.114 350.1.13.10 4.2.7.2.[id number] [facility] 2022-03-25 21:48:00 2022-03-25 23:43:00 Emergency X RAE GRIMALDO [facility] [id number] [facility] 2022-03-25 21:48:00 2022-03-25 23:43:00 Emergency R[facility] 1.2.840.114 350.1.13.10 4.2.7.2.[id number] [facility] 2022-03-21 15:40:00 2022-03-21 16:14:34 Outpatient R RIANNA VARELA [facility] [id number] [facility] 2022-03-21 15:40:00 2022-03-21 16:14:34 Office Visit Rianna Varela [facility] 1.2.840.114 350.1.13.10 4.2.7.2.[id number] [facility] 2022-03-21 15:40:00 2022-03-21 16:14:34 Outpatient R RIANNA VARELA [facility] [id number] [facility] 2022-03-21 15:40:00 2022-03-21 15:40:00 Outpatient R RIANNA VARELA [facility] [id number] [facility] 2022-03-05 17:00:00 2022-03-05 17:15:00 Medical Billing Supervisor Visit Buddy, Adc Lab Main Rianna Varela [facility] 1..840.114 350.1.13.10 4.2.7.2.[id number] [facility] 2022-03-05 17:00:00 2022-03-05 17:00:00 Outpatient R RIANNA VARELA [facility] [id number] [facility] 2022-03-05 16:00:00 2022-03-05 16:39:47 Outpatient R RIANNA VARELA [facility] [id number] [facility] 2022-03-05 16:00:00 2022-03-05 16:39:47 Office Visit Rianna Varela [facility] BUILD[facility] 1..840.114 350.1.13.10 4.2.7.2.[id number] [facility] 2022-03-05 00:00:00 2022-03-05 00:00:00 Orders Only Doctor Unassigned, [place] [facility] 1.840.114 350.1.13.10 4.2.7.2.[id number] [facility] 2022-02-27 00:00:00 2022-02-27 00:00:00 Refill Rianna Varela [facility] BUILD[facility] 1..840.114 350.1.13.10 4.2.7.2.[id number] [facility] 2021-11-27 00:00:00 2021-11-27 00:00:00 Refill Nichole [facility] BUILDING 1.2.840.114 350.1.13.10 4.2.7.2.[id number] [facility] 2021-11-23 10:30:00 2021-11-23 10:30:00 Outpatient R BORIS ESQUIVEL [facility] [id number] [facility] 2021-09-18 00:00:00 2021-09-18 00:00:00 Outpatient R RIANNA VARELA [facility] [id number] [facility] 2021-09-18 00:00:00 2021-09-18 00:00:00 Outpatient R RIANNA VARELA [facility] [id number] [facility] 2021-09-04 16:20:00 2021-09-04 17:25:33 Outpatient R RIANNA VARELA [facility] [id number] [facility] 2021-09-04 16:20:00 2021-09-04 17:25:33 Office Visit Rianna Varela [email or web address] 1.2.840.114 350.1.13.10 4.2.7.2.[id number] [facility] 2021-09-04 16:20:00 2021-09-04 17:25:33 Outpatient R RIANNA VARELA [facility] [id number] [facility] 2021-08-17 17:00:00 2021-08-17 17:00:00 Outpatient R RIANNA VARELA [facility] [id number] [facility] 2021-08-17 00:00:00 2021-08-17 00:00:00 Outpatient R RIANNA VARELA [facility] [id number] [facility] 2021-06-22 14:40:00 2021-06-22 14:40:00 Outpatient R RIANNA VARELA [facility] [id number] [facility] 2021-06-22 08:30:00 2021-06-22 08:30:00 Outpatient MICHAEL BROOKS [facility] [id number] [facility] 2021-06-08 08:30:00 2021-06-08 08:30:00 Outpatient RANJITH SAWYER [facility] [id number] [facility] 2021-06-08 00:00:00 2021-06-08 00:00:00 Telephone Rianna Varela [facility] PROF[facility] NAL BUILDING 1.84.114 350.1.13.10 4.2.7.2.[id number] [facility] 2021-06-06 00:00:00 2021-06-06 00:00:00 Letter (Out) Ej Humphrey [facility] 1.84.114 350.1.13.10 4.2.7.2.[id number] [facility] 2021-06-05 16:36:34 2021-06-05 16:51:34 Laboratory Only Only, Ang Db Test Unknown, Attending [facility]?Radha varela [facility] 1.84.114 350.1.13.10 4.2.7.2.[id number] [facility] 2021-06-05 16:45:00 2021-06-05 16:45:00 Outpatient R UNKNOWN, ATTENDING [facility] [id number] [facility] 2021-06-01 10:15:00 2021-06-01 10:15:00 Outpatient MICHAEL BROOKS [facility] [id number] [facility] 2021-06-01 00:00:00 2021-06-01 00:00:00 Telephone Ranjith Reid [facility] 1..114 350.1.13.10 4.2.7.2.[id number] [facility] 2021-05-31 08:30:00 2021-05-31 23:59:00 Hospital Encounter Boris Esquivel [facility] 1.2.840.114 350.1.13.10 4.2.7.2.[id number] [facility] 2021-05-31 08:30:00 2021-05-31 23:59:00 Outpatient R BORIS ESQUIVEL [facility] [id number] [facility] 2021-05-31 16:20:00 2021-05-31 12:43:43 Outpatient R RIANNA VARELA [facility] [id number] [facility] 2021-05-31 10:42:54 2021-05-31 12:43:43 Office Visit Rianna Varela [facility] 1..840.114 350.1.13.10 4.2.7.2.[id number] [facility] 2021-05-28 14:08:00 2021-05-28 18:48:00 Emergency Gabriel Reid [facility] 1..840.114 350.1.13.10 4.2.7.2.[id number] [facility] 2021-05-28 14:08:00 2021-05-28 18:48:00 Emergency X GABRIEL REID [facility] [[email or web address] ERT [id number] [facility] 2021-05-26 00:00:00 2021-05-26 00:00:00 Refill Boris Esquivel [facility] 1.2.840.114 350.1.13.10 4.2.7.2.[id number] [facility] 2021-05-26 00:00:00 2021-05-26 00:00:00 Refill Rianna Varela [facility] 1.2.840.114 350.1.13.10 4.2.7.2.[id number] [facility] 2021-05-22 11:00:00 2021-05-22 11:00:00 Outpatient R RANJITH REID [facility] [id number] [facility] 2021-05-18 18:00:00 2021-05-18 18:00:00 Outpatient R RICKEY DOMINGUEZ [facility] [id number] [facility] 2021-05-18 09:00:00 2021-05-18 09:00:00 Outpatient R MICHAEL JOHNSON [facility] [id number] [facility] 2021-05-17 00:00:00 2021-05-17 00:00:00 Outpatient [facility] [id number] [facility] 2021-05-16 16:30:00 2021-05-16 16:30:00 Outpatient R [facility] [id number] [facility] 2021-05-15 00:00:00 2021-05-15 00:00:00 Telephone Ranjith Reid [facility] [[email or web address] 1..840.114 350.1.13.10 4.2.7.2.[id number] [facility] 2021-05-11 17:00:00 2021-05-11 17:00:00 Outpatient R UNKNOWN, ATTENDING [facility] [id number] [facility] 2021-05-11 13:27:10 2021-05-11 13:36:40 Laboratory Only Only, Ang Db Test [facility]Radha [facility] 1.2.840.114 350.1.13.10 4.2.7.2.[id number] [facility] 2021-05-11 13:30:00 2021-05-11 13:30:00 Outpatient R RIMA PAEZ [facility] [id number] [facility] 2021-05-10 09:30:00 2021-05-10 09:30:00 Outpatient R RANJITH REID [facility] [id number] [facility] 2021-04-26 14:07:01 2021-04-26 14:22:01 Medical Billing Supervisor Visit [facility] 1.2.840.114 350.1.13.10 4.2.7.2.[id number] [facility] 2021-04-26 14:07:01 2021-04-26 14:22:01 Medical Billing Supervisor Visit [facility] 1.2.840.114 350.1.13.10 4.2.7.2.[id number] [facility] 2021-04-26 13:01:30 2021-04-26 14:06:27 [facility] 1.2.840.114 350.1.13.10 4.2.7.2.[id number] [facility] 2021-04-26 13:00:00 2021-04-26 13:00:00 Outpatient R RANJITH REID [facility] [id number] [facility] 2021-04-23 12:56:29 2021-04-23 23:59:00 [facility] 1.2.840.114 350.1.13.10 4.2.7.2.[id number] [facility] 2021-04-23 12:56:29 2021-04-23 23:59:00 [facility] 1.2.840.114 350.1.13.10 4.2.7.2.[id number] [facility] 2021-04-23 00:00:00 2021-04-23 00:00:00 Outpatient R RIANNA VARELA [facility] [id number] [facility] 2021-04-20 11:00:00 2021-04-20 11:00:00 Outpatient R ELIZABETH MICHAEL [facility] [id number] [facility] 2021-04-13 08:56:37 2021-04-13 09:26:37 Office Visit Ranjith Reid [facility] [[email or web address] 1.114 350.1.13.10 4.2.7.2.[id number] [facility] 2021-04-13 08:56:37 2021-04-13 09:26:37 [facility] 1.114 350.1.13.10 4.2.7.2.[id number] [facility] 2021-04-13 09:00:00 2021-04-13 09:00:00 Outpatient R RANJITH REID [facility] [id number] [facility] 2021-03-27 00:00:00 2021-03-27 00:00:00 Patient Secure Msg Doctor Unassigned, [place] [facility] 1.114 350.1.13.10 4.2.7.2.[id number] [facility] 2021-03-22 15:10:50 2021-03-22 15:25:50 Medical Billing Supervisor Visit 2, Adc Lab Rianna Varela [facility] 1.114 350.1.13.10 4.2.7.2.[id number] [facility] 2021-03-22 13:48:28 2021-03-22 15:06:07 Office Visit Rianna Varela [facility] 1.2.840.114 350.1.13.10 4.2.7.2.[id number] [facility] 2021-03-22 13:40:00 2021-03-22 13:40:00 Outpatient R RIANNA VARELA [facility] [id number] [facility] 2021-03-22 00:00:00 2021-03-22 00:00:00 Orders Only Doctor Unassigned, [place] [facility] 1.2840.114 350.1.13.10 4.2.7.2.[id number] [facility] 2021-03-01 11:00:00 2021-03-01 11:00:00 Outpatient R BORIS ESQUIVEL [facility] [id number] [facility] 2020-12-20 14:31:55 2020-12-20 14:46:55 Medical Billing Supervisor Visit 2, Adc Lab Rianna Varela [facility] 1.2.840.114 350.1.13.10 4.2.7.2.[id number] [facility] 2020-12-20 12:57:09 2020-12-20 14:28:44 Office Visit Nichole Rianna [facility] 1.2.840.114 350.1.13.10 4.2.7.2.[id number] [facility] 2020-12-20 13:00:00 2020-12-20 13:00:00 Outpatient R JORGEEITANAUNGRIANNA MCKENZIE [facility] [id number] [facility] 2020-12-06 09:47:28 2020-12-06 09:52:28 Telemedici ne Visit Nichole [facility] 1.2.840.114 350.1.13.10 4.2.7.2.[id number] [facility] 2020-12-06 09:40:00 2020-12-06 09:40:00 Outpatient RIANNA VENTURA [facility] [id number] [facility] 2020-12-02 00:00:00 2020-12-02 00:00:00 Refill Rianna Varela [facility] 1.2.840.114 350.1.13.10 4.2.7.2.[id number] [facility] 2020-11-15 00:00:00 2020-11-15 00:00:00 Refill Rianna Varela [facility] 1.2.840.114 350.1.13.10 4.2.7.2.[id number] [facility] 2020-10-24 00:00:00 2020-10-24 00:00:00 Patient Outreach Jason Slade [facility] [[email or web address] 1.2.840.114 350.1.13.10 4.2.7.2.[id number] [facility] 2020-10-03 19:16:00 2020-10-03 22:14:00 Emergency Aron [facility] 1.2.840.114 350.1.13.10 4.2.7.2.[id number] [facility] 2020-10-03 16:20:00 2020-10-03 16:20:00 Outpatient R RIANNA VARELA [facility] [id number] [facility] 2020-09-18 00:00:00 2020-09-18 00:00:00 Telephone Boris Esquivel [facility] 1.2.840.114 350.1.13.10 4.2.7.2.[id number] [facility] 2020-09-18 00:00:00 2020-09-18 00:00:00 Orders Only Doctor Unassigned, [place] [facility] 1.2.840.114 350.1.13.10 4.2.7.2.[id number] [facility] 2020-09-16 22:43:00 2020-09-17 02:06:00 Emergency Idalmis [facility] 1.840.114 350.1.13.10 4.2.7.2.[id number] [facility] 2020-09-16 22:43:00 2020-09-17 02:06:00 Emergency X SERAYESYIDALMIS BAXTER [facility] [[email or web address]] ERT [id number] [facility] 2020-09-15 07:26:58 2020-09-15 23:59:00 Hospital Encounter Boris Esquivel Umamahesh Outpt-S[facility], C[facility] 1.840.114 350.1.13.10 4.2.7.2.[id number] [facility] 2020-09-15 08:00:00 2020-09-15 08:00:00 Outpatient R [facility] [id number] [facility] 2020-09-15 06:45:00 2020-09-15 07:25:00 Hospital Encounter Roger Marie Outpt-Suly, Ccl [facility] 1.0.114 350.1.13.10 4.2.7.2.[id number] [facility] 2020-09-14 00:00:00 2020-09-14 00:00:00 Telephone Boris Esquivel [facility] 1.840.114 350.1.13.10 4.2.7.2.[id number] [facility] 2020-09-12 00:00:00 2020-09-12 00:00:00 Telephone Boris Esquivel [facility] 1.2.840.114 350.1.13.10 4.2.7.2.[id number] [facility] 2020-09-07 14:46:24 2020-09-07 15:29:48 Office Visit Boris Esquivel [facility] 1.2.840.114 350.1.13.10 4.2.7.2.[id number] [facility] 2020-09-07 15:00:00 2020-09-07 15:00:00 Outpatient R BORIS ESQUIVEL [facility] [id number] [facility] 2020-09-05 08:52:52 2020-09-05 23:59:00 [facility] 1.2.840.114 350.1.13.10 4.2.7.2.[id number] [facility] 2020-09-05 08:52:09 2020-09-05 23:59:00 Hospital En[facility] 1.2.840.114 350.1.13.10 4.2.7.2.[id number] [facility] 2020-09-05 08:51:29 2020-09-05 08:51:29 [facility] 1.2.840.114 350.1.13.10 4.2.7.2.[id number] [facility] 2020-09-05 08:49:21 2020-09-05 08:50:00 Outpatient R ALVIN BORIS [facility] [id number] [facility] 2020-09-05 08:49:21 2020-09-05 08:50:00 Hospital Encounter Boris Esquivel [facility] ([facility]) 1.2.840.114 350.1.13.10 4.2.7.2.[id number] [facility] 2020-09-05 00:00:00 2020-09-05 00:00:00 Telephone Boris Esquivel [facility] 1.2.840.114 350.1.13.10 4.2.7.2.[id number] [facility] 2020-08-29 10:29:37 2020-08-29 11:21:28 Office Visit Boris Esquivel [facility] 1.2.840.114 350.1.13.10 4.2.7.2.[id number] [facility] 2020-08-29 11:00:00 2020-08-29 11:00:00 Outpatient R BORIS ESQUIVEL [facility] [id number] [facility] 2020-08-15 15:30:00 2020-08-15 15:30:00 Outpatient R BORIS ESQUIVEL [facility] [id number] [facility] 2020-08-14 00:00:00 2020-08-14 00:00:00 RefRianna London [facility] 1.2.840.114 350.1.13.10 4.2.7.2.[id number] [facility] 2020-08-14 00:00:00 2020-08-14 00:00:00 Rianna Goldsmith [facility] 1.2.840.114 350.1.13.10 4.2.7.2.[id number] [facility] 2020-07-20 15:00:00 2020-07-20 15:00:00 Outpatient R BORIS ESQUIVEL [facility] [id number] [facility] 2020-07-14 11:00:00 2020-07-14 11:00:00 Outpatient R RIANNA VARELA [facility] [id number] [facility] 2020-05-29 00:00:00 2020-05-29 00:00:00 Patient Outreach Saeed Evelia L [facility] Office Building One 1.2840.114 350.1.13.10 4.2.7.2.[id number] [facility] 2020-05-26 15:48:14 2020-05-26 16:51:12 Office Visit JorgeeitanaungRianna mckenzie [facility] Building 1.2840.114 350.1.13.10 4.2.7.2.[id number] [facility] 2020-05-26 15:40:00 2020-05-26 16:51:12 Office Visit Rianna Varela [facility] 1.2840.114 350.1.13.10 4.2.7.2.[id number] [facility] 2020-05-26 15:40:00 2020-05-26 16:51:12 Outpatient R RIANNA VARELA [facility] [id number] [facility] 2020-05-26 15:40:00 2020-05-26 15:40:00 Outpatient R RIANNA VARELA [facility] [id number] [facility] 2020-05-26 00:00:00 2020-05-26 00:00:00 Orders Only Doctor Unassigned, [place] [facility] 1.2.840.114 350.1.13.10 4.2.7.2.[id number] [facility] 2020-05-26 00:00:00 2020-05-26 00:00:00 Letter (Out) Doctor Unassigned, [place] [facility] 1.2.840.114 350.1.13.10 4.2.7.2.[id number] [facility] 2020-04-20 12:57:02 2020-04-27 08:54:06 Office Visit Boris Esquivle [facility] 1.2.840.114 350.1.13.10 4.2.7.2.[id number] [facility] 2020-04-27 00:00:00 2020-04-27 00:00:00 Orders Only Doctor Unassigned, [place] [facility] 1.2.840.114 350.1.13.10 4.2.7.2.[id number] [facility] 2020-04-26 13:58:03 2020-04-26 14:58:03 Laboratory Only Pc, Adc Echo Room 1 - Nichole [facility] Building 1.2840.114 350.1.13.10 4.2.7.2.[id number] [facility] 2020-04-26 14:00:00 2020-04-26 14:00:00 Outpatient R [facility] [id number] [facility] 2020-04-26 00:00:00 2020-04-26 00:00:00 Telephone Rianna Varela [facility] 1.2840.114 350.1.13.10 4.2.7.2.[id number] [facility] 2020-04-20 13:00:00 2020-04-20 13:00:00 Outpatient R BORIS ESQUIVEL [facility] [id number] [facility] 2020-04-20 00:00:00 2020-04-20 00:00:00 Letter (Out) Boris Esquivel [facility] 1.2.840.114 350.1.13.10 4.2.7.2.[id number] [facility] 2020-03-07 00:00:00 2020-03-07 00:00:00 Telephone Rianna Varela [facility] 1.2.840.114 350.1.13.10 4.2.7.2.[id number] [facility] 2020-02-22 12:09:05 2020-02-22 12:31:04 Medical Billing Supervisor Visit 2, Adc Lab Rodríguez William [facility] 1.2.840.114 350.1.13.10 4.2.7.2.[id number] [facility] 2020-02-22 10:56:06 2020-02-22 11:47:32 Office Visit Rianna Varela [facility] 1.2.840.114 350.1.13.10 4.2.7.2.[id number] [facility] 2020-02-22 10:40:00 2020-02-22 10:40:00 Outpatient R RIANNA VARELA [facility] [id number] [facility] 2020-02-22 00:00:00 2020-02-22 00:00:00 Orders Only Doctor Unassigned, [place] [facility] 1.2.840.114 350.1.13.10 4.2.7.2.[id number] [facility] 2020-02-21 00:00:00 2020-02-21 00:00:00 Refill Rianna Varela [facility] 1.2.840.114 350.1.13.10 4.2.7.2.[id number] [facility] 2020-02-14 00:00:00 2020-02-14 00:00:00 Refill Rianna Varela [facility] 1.2.840.114 350.1.13.10 4.2.7.2.[id number] [facility] 2019-11-27 21:53:33 2019-11-28 00:46:00 Emergency X ARON BURGOS [facility] [id number] [facility] 2019-11-27 21:53:33 2019-11-28 00:46:00 Emergency Aron Burgos [facility] 1.2.840.114 350.1.13.10 4.2.7.2.[id number] [facility] 2019-11-22 00:00:00 2019-11-22 00:00:00 Refill Rianna Varela [facility] 1.2.840.114 350.1.13.10 4.2.7.2.[id number] [facility] 2019-11-20 00:00:00 2019-11-20 00:00:00 Refill Rianna Varela [facility] 1.2.840.114 350.1.13.10 4.2.7.2.[id number] [facility] 2019-10-23 00:00:00 2019-10-23 00:00:00 RefRianna London [facility] 1.2.840.114 350.1.13.10 4.2.7.2.[id number] [facility] Results Test Description Test Time Test Comments Results Result Co mments Source [facility] Notes Date/Time Note Provider Source 2023-12-12 10:22:18 fSVTQEtYcNxkgoqn0so2 vgMa+HxhQKy yOdn7v5eFx+aMWdRseJJJZCZHas8hpb ZD9146-78-21A85:22:18 Images from the original note were not included.Refill approved per cardiology protocol:Cardiovascular: Antilipid - HMG-CoA Reductase Inhibitors Olwins2912/12/2023 10:12 AMProtocol Details Valid encounter within last 12 monthsTotal Cholesterol within 360 daysLDL within 360 daysHDL within 360 daysTriglycerides within 360 daysAST in normal range and within 360 daysALT in normal range and within 360 days 39795-6Kmlshckzh encounter UdhfJY7357-18-73H18:22:18Teleph one encounter NoteTXT1.2.840.138764.1.13.104. 2.7.2.904833|[id number] ble for patient dgjs73613-4YvpdHICVSMKEFHIItyti tted C-CDA narrative gulz974792564Roxpkfkeu D Garcia MA[address] IoghXlliediklInpjnfrkkAYPU19795 58506ZFADOSMJKSHPDBLOFFWBER4840 -05-03T10:22:181.2.840.389047.1 .72.3.15|1.2.840.430139.1.13.10 4.2.7.2.727879_[id number] Carmelina Rizzo [facility] 2023-12-07 20:48:44 t6WfCllcMiUFVCCzJUEO QV585pJWHvU BcUpZRWq8tIz0RTk5pBDx1EsN6nXfUO Dc3284-86-28S69:48:44 Chart reviewed regarding my office note dated 06/24/2023.The history of CVA/status for the past medical diagnosis. He needs to discuss with his neurologist or PCP to see if he can be taken out.Chart dated 10/03/2023 also reflects the same as it is in the past medical diagnosis.I have updated my last office note 06/24/2023 in a way that does not show in the diagnosis codes. 39104-0Ugyzveaqh encounter HawcNT6126-45-41D08:51:08Teleph one encounter NoteTXT1.2.840.351870.1.13.104. 2.7.2.972997|[id number] ble for patient dddi59783-4RijvQXTIOSMBTHDDrcyx tted C-CDA narrative [address] TxcnWpebtpgaySvsyptbzbHDHL81026 29834PROGPKWALSWXACARIXISMT8711 -04-28T20:51:081.2.840.130842.1 .72.3.15|1.2.840.612473.1.13.10 4.2.7.2.727879_[id number] [facility] 2023-12-04 10:58:38 KUPRYdYfGxNNhFwikMve 6WxbH/8o5ba vsoY2yUWWbR0SqY0G3/5pJOvbXfIsW1 ye7147-60-36M03:58:38 Will re route to MD for status update. 29297-6Pnokuczxn encounter MrtuAX0650-25-12V81:04:22Teleph one encounter NoteTXT1.2.840.047048.1.13.104. 2.7.2.336404|[id number] ble for patient xexr26062-3QpafHERVAUWCYIAQuskk tted C-CDA narrative dpvs778704099Yjihqr Castaneda MA[address] DwnjLdojgvjcaWhjpxaunxSYOV69543 95145RWBICMNRKGOJERJSYDVYDC5103 -04-25T11:04:221.2.840.514260.1 .72.3.15|1.2.840.456078.1.13.10 4.2.7.2.727879_[id number] Al Montesinos MA [facility] 2023-11-26 15:52:03 GYtQKipH324pjFU90X5b ga7I98wwnFQ JMtwRB3UtFLaMT6dJV8oHceaf5PPjEg 3H7476-49-32W48:52:03 Will route to MD for chart review. Will call patient once MD advises instructions. 99129-8Lcpyovgii encounter FcorLE8840-72-32B64:52:45Teleph one encounter NoteTXT1.2.840.540348.1.13.104. 2.7.2.855661|[id number] ble for patient vyjy00001-6YvltGOJIGIABIZCGpxuj tted C-CDA narrative [address] 52312QBBIGPAOSLYIKTEOVNKCVW7010 -04-17T15:52:451.2.840.283558.1 .72.3.15|1.2.840.755686.1.13.10 4.2.7.2.727879_[id number] [facility] 2023-11-26 14:58:34 39yX0r/qnZls9goQOWbn kG1oHvaTRG4 SbTPNqZpR/yC+NRQUc+dTgK1PNbZrgK yp5189-45-45M91:58:34 Patient is calling in stating he had his stress tests done at the hospital on 07/08/23 for him to get a CDL, he is stating that on his paper work he received it stated he had one due to a stroke and he is needing the paperwork to be changed because he stated he's never had one before. Please assist, thank you. 65414-9Mqitkxpxa encounter TiilHE9485-63-91B65:00:28Teleph one encounter NoteTXT1.2.840.599215.1.13.104. 2.7.2.363019|[id number] [facility] uwdi41568-1UihaZDLRVBODFQRLzjap tted C-CDA narrative ipyx802160302Bzqubdje [address] FcxkIvzrglclwCgctzvoqbUHMU69461 88045YYCAYTYDGKMPQHJPSBSSBR9391 -04-17T15:00:281.2.840.213795.1 .72.3.15|1.2.840.144714.1.13.10 4.2.7.2.727879_[id number] Yuliya Reis [facility] 2023-08-11 18:37:50 gDqnVqAQcKn+3LGkt3ea /PI2xjHowu+ sD/VwwKTVNxlvn5dlNboI76xe26B/Pp Wa2601-72-96W83:37:50 Images from the original note were not included.Last OV: 07/08/2023 with Roberta Levine NPBen Refill: 10/01/2022 prescribed by Rianna Long [facility] Pertaining to Med: N/AFuture Appt:Future AppointmentsProvider Department Dept Phone08/18/2023 12:15 PM Salomón See MD [facility] Neurosurgery Spine Care, [facility] [phone]/ 2:40 PM Rianna Varela MD [facility] [phone]/ 10:30 AM Boris Esquivel MD [facility] Cardiology, [facility] [phone] to provider for review. Unable to refill per ambulatory refill guidelines.Name from pharmacy: Gabapentin 400 MG Oral CapsuleWill file in chart as: GABAPENTIN 400 mg capsuleSig: Take 1 capsule by mouth in the morning and 1 capsule at noon and 1 capsule in the evening.Original sig: TAKE 1 CAPSULE BY MOUTH IN THE MORNING AND 1 CAPSULE AT NOON AND 1 CAPSULE IN THE EVENINGDisp: 180 capsule Refills: 0Start: 08/09/2023lass: eRXFor: Chronic midline low back pain with right-sided sciatica, Lumbar paraspinal muscle spasm, Numbness and tingling of right arm, Narrowing of intervertebral disc space, Lumbar radiculopathyLast ordered: 10 months ago (10/01/2022) by Hermila Lopez refill: 06/13/2023Rx #: [id number] Pain Mcumqf5308/09/2023 05:53 AMProtocol Details Manual Review: Verify no changes in dose in the last 3 monthsValid encounter within last 12 months 61093-3Fcygabpyq encounter KkulHI0516-68-93K38:38:55Teleph one encounter NoteTXT1.2.840.225339.1.13.104. 2.7.2.172777|[id number] [facility] cxqb01468-5EhlrJUYGBTVVMJVXbxtj tted C-CDA narrative mwck923561435Mltozns A Nelson RNUT[address] HhloYwmwspfqwKfmywdxqsAYVA80528 18169LTMWPKBYFBNQAUFRSOMYHO5237 -01-01T18:38:551.2.840.774576.1 .72.3.15|1.2.840.243519.1.13.10 4.2.7.2.727879_[id number] Alicia Field RN [facility] 2023-04-23 10:30:00 9ygrzhwLQTZznEvFIQfF lEjojPp0eTc xu1eCI22QdippDJngimdIBkTeSqeQw/ A05272-73-80Z22:30:00 Images from the original note were not included.Venipuncture collection performed by clean technique on the right anticubitus. Total of 1 attempts were made. Slight pressure and a bandage/dressing were applied to the site(s). The patient experienced no complications. The following specimens were processed according to instructions and sent to [email or web address]] laboratories per lab order on 04/23/2023: LT BLUE SST 1 RED LAV 1 PPT DK GREEN (LiHep) DK GREEN (SodH) PEACE DK BLUE (K2) DK BLUE (S) ACD Blood Culture NIPT/NTD 91082-4Wlfao TtifPV9883-51-94Y30:35:16Nurse NoteTXT1.2.840.068104.1.13.104. 2.7.2.145270|[id number] ble for patient uqpp44866-4Qpfgq NoteUT[address] YditBomafcumgOejzdimkiDEEL56607 29392MOYKWCQRNMSJTKIUEJNAGV3254 -09-13T10:35:161.2.840.738750.1 .72.3.15|1.2.840.530770.1.13.10 4.2.7.2.727879_[id number] [facility] 2023-03-21 13:08:42 cTreu/LzZrVgVyAfqLOD utX+CX6iYTx Rw37Gg/QunVXzDOR3hSCStgnJoKwWX1 k24240-25-36M50:08:42 Requested Prescriptions Pending Prescriptions Disp Refills METOPROLOL SUCCINATE XL 50 mg 24 hr tablet [Pharmacy Med Name: Metoprolol Succinate ER 50 MG Oral Tablet Extended Release 24 Hour] 90 tablet 0 Sig: Take 1 tablet by mouth in the morning. Cardiovascular: Beta Blockers Passed - 03/21/2023 11:57 AM Passed - Valid encounter within last 12 months Recent VisitsDate Type Provider Dept 10/01/22 Office Visit Rianna Varela MD [facility] 08/23/22 Telemedicine Visit Nayana Taylor NP [facility] 07/11/22 Office Visit Rianna Varela MD [facility] 06/13/22 Office Visit Rianna Varela MD [facility] 06/03/22 Nurse Visit Nurse, [facility] 05/10/22 Office Visit Rianna Varela MD [facility] 04/03/22 Office Visit Rianna Varela MD [facility] 03/28/22 Office Visit Rianna Varela MD [facility] 03/21/22 Office Visit Rianna Varela MD [facility] Showing recent visits within past 365 days and meeting all other requirementsFuture AppointmentsDate Type Provider Dept 04/04/23 Appointment Rianna Varela MD [facility] Showing future appointments within next 365 days and meeting all other requirements Passed - Heart rate within normal limits and completed in the last 12 months Pulse Readings from Last 1 Encounters: 10/01/22 112 CLOPIDOGREL 75 mg tablet [Pharmacy Med Name: Clopidogrel Bisulfate 75 MG Oral Tablet] 90 tablet 0 Sig: Take 1 tablet by mouth in the morning. Anti-Platelets Passed - 03/21/2023 11:57 AM Passed - Valid encounter within last 12 months Recent VisitsDate Type Provider Dept 10/01/22 Office Visit Rianna Varela MD [facility] 08/23/22 Telemedicine Visit Nayana Taylor NP [facility] 07/11/22 Office Visit Rianna Varela MD [facility] 06/13/22 Office Visit Rianna Varela MD [facility] 06/03/22 Nurse Visit Nurse, [facility] 05/10/22 Office Visit Rianna Varela MD [facility] 04/03/22 Office Visit Rianna Varela MD [facility] 03/28/22 Office Visit Rianna Varela MD [facility] 03/21/22 Office Visit Rianna Varela MD [facility] Showing recent visits within past 365 days and meeting all other requirementsFuture AppointmentsDate Type Provider Dept 04/04/23 Appointment Rianna Varela MD [facility] Showing future appointments within next 365 days and meeting all other requirements Passed - HGB in normal range and within 360 days HGB Date Value Ref Range Status 08/19/2022 15.2 12.2 - 16.4 g/dL Final 10/10/2008 17.5 (H) 13.5 - 17.0 G/DL Final Passed - HCT in normal range and within 360 days HCT Date Value Ref Range Status 08/19/2022 44.1 38.4 - 49.3 % Final 10/10/2008 49.9 40.0 - 50.0 % Final Passed - PLT in normal range and within 360 days PLT x10^3 Date Value Ref Range Status 10/10/2008 174 150 - 400 /CMM Final PLT Date Value Ref Range Status 08/19/2022 183 150 - 328 10*3/?L Final Passed - RBC in normal range and within 360 days RBC x10^6 Date Value Ref Range Status 10/10/2008 5.01 4.40 - 5.65 /CMM Final RBC Date Value Ref Range Status 08/19/2022 4.45 4.26 - 5.52 10*6/?L Final Passed - WBC in normal range and within 360 days WBC x10^3 Date Value Ref Range Status 10/10/2008 6.5 4.0 - 10.0 /CMM Final WBC Date Value Ref Range Status 08/19/2022 7.76 4.20 - 10.70 10*3/?L Final ENALAPRIL 5 mg tablet [Pharmacy Med Name: Enalapril Maleate 5 MG Oral Tablet] 90 tablet 0 Sig: Take 1 tablet by mouth in the morning. Cardiovascular: YANA Inhibitors Passed - 03/21/2023 11:57 AM Passed - Valid encounter within last 12 months Recent VisitsDate Type Provider Dept 10/01/22 Office Visit Rianna Varela MD [facility] 08/23/22 Telemedicine Visit Nayana Taylor NP [facility] 07/11/22 Office Visit Rianna Varela MD [facility] 06/13/22 Office Visit Rianna Varela MD [facility] 06/03/22 Nurse Visit Nurse, [facility] 05/10/22 Office Visit Rianna Varela MD [facility] 04/03/22 Office Visit Rianna Varela MD [facility] 03/28/22 Office Visit Rianna Varela MD [facility] 03/21/22 Office Visit Rinana Varela MD [facility] Showing recent visits within past 365 days and meeting all other requirementsFuture AppointmentsDate Type Provider Dept 04/04/23 Appointment Rianna Varela MD [facility] Showing future appointments within next 365 days and meeting all other requirements Passed - K in normal range and within 360 days K Date Value Ref Range Status 08/19/2022 4.6 3.5 - 5.0 mmol/L Final 10/10/2008 4.4 3.5 - 5.0 MMOL/L Final Passed - Cr in normal range and within 360 days CREATININE Date Value Ref Range Status 08/19/2022 0.87 0.60 - 1.25 mg/dL Final 10/10/2008 0.90 0.70 - 1.70 MG/DL Final POCT Creatinine Date Value Ref Range Status 06/07/2018 1.1 0.6 - 1.3 mg/dL Final 94472-8Jnbcjvqki encounter BscuAE3121-10-54N28:08:47Teleph one encounter NoteTXT1.2.840.124797.1.13.104. 2.7.2.563529|[id number] [facility] cevc14525-3WeiqSM593094407Tsmcm a Su[place] [address] CdhaDyyfivubaNkskgpuztYKVE28337 81850GMZDFJDQYZYXRSSOOOUFYI8430 -08-11T13:08:471.2.840.576290.1 .72.3.15|1.2.840.237783.1.13.10 4.2.7.2.727879_[id number] Cristina Robles [facility]"
[2024-01-03] MEDS ORDERED: ONDANSETRON 4 MG/2 ML VIAL ONE (18:12)
[2024-01-03] MEDS ORDERED: NA CHLORIDE 0.9% 1,000 ML ONE (18:13)
[2024-01-03] MEDS ORDERED: MORPHINE 4 MG/ML SYR ONE (18:13)
[2024-01-03 18:37] LABS: Absolute Eosinophils 0.2 K/uL (0-0.5); Absolute Lymphocytes (CBC) 1.9 K/uL (0.7-4.9); Absolute Monocytes 0.9 K/uL (0.1-1.3); Absolute Neutrophil 2.7 K/uL (1.8-8.0); Basophils % 0.2 % (0-1.3); Eosinophils % 4.1 % (0-4.4); Hematocrit 47.9 % (39.6-49.0); Hemoglobin 16.4 g/dL (13.6-17.9); Lymphocytes % 33.9 % (15.3-44.8); MCH 33.6 pg (27.0-35.0); MCHC 34.3 g/dL (32.0-36.0); MCV 97.8 fL (80-100); MPV 7.8 fL (7.6-11.3); Monocytes % 15.1 % (3.3-12.3); Neutrophils % 46.7 % (41.7-73.7); Nucleated Red Blood Cells % 0.1 % (0-0); Platelets 175 thou/uL (152-406); Red Cell Distribution Width 13.9 % (12.1-15.2)
--- NOTE | 2024-01-03 18:48 | RAD REPORT ---
EXAM DESCRIPTION: RAD - Chest Single View - 01/03/2024 6:35 pm CLINICAL HISTORY: PAIN COMPARISON: Chest Single View dated 04/27/2019; CHEST SINGLE VIEW dated 01/25/2008 FINDINGS: Lines: None. Lungs: No evidence of edema or pneumonia. Pleural: No significant pleural effusions or pneumothorax. Cardiac: The heart size is within normal limits. Mediastinum: Within normal limits. Bones: No acute fractures. Other: None IMPRESSION: No acute cardiopulmonary disease.
[2024-01-03 18:50] LABS: Albumin 3.4 g/dL (3.4-5.0); Albumin/Globulin Ratio 0.8 (1.1-1.8); Anion Gap 10.3 mEq/L (5.0-15.0); Bilirubin Total 0.8 mg/dL (0.2-1.0); Globulin 4.3 g/dL (2.3-3.5); Potassium 4.3 mEq/L (3.5-5.1); Protein, Total 7.7 g/dL (6.4-8.2); Troponin High Sensitivity 4.1 pg/mL (<58.9)
--- NOTE | 2024-01-03 19:29 | RAD REPORT ---
EXAM DESCRIPTION: CTAbdomen Pelvis W Contrast - 01/03/2024 7:13 pm CLINICAL HISTORY: ABD PAIN COMPARISON: Abdomen Exam Limited dated 04/27/2019 TECHNIQUE: CT of the abdomen and pelvis was performed with IV contrast. All CT scans are performed using dose optimization technique as appropriate and may include automated exposure control or mA/KV adjustment according to patient size. FINDINGS: Lower chest: Coronary stent in the circumflex. Liver: 6 mm low attenuation lesion in the right hepatic lobe on image 20, series 201 is too small to characterize, statistically benign. Mildly nodular liver contour of the left hepatic lobe could refl ect early cirrhotic changes. . Biliary: No biliary ductal dilatation. Stomach: No significant focal abnormality. Duodenum: No significant focal abnormality. Pancreas: No significant abnormality. Spleen: No significant abnormality. Adrenal: No suspicious lesions. Kidney/ureter: No hydronephrosis. No renal calculi. Left lower pole renal cyst. Retroperitoneum: No retroperitoneal adenopathy. Vascular: No aneurysm. Bowel: Normal appendix. Diverticulosis. No evidence of acute diverticulitis. Wall thickening at the s igmoid likely reflecting smooth muscle hypertrophy. Peritoneum: No ascites or free air. Small fat containing inguinal hernias Bladder: Mild circumferential bladder wall thickening. Reproductive: No adnexal masses. Bones: No acute fracture. Remote left ninth rib fracture. Multilevel degenerative changes are present in the spine. The spinal stenosis is noted at multiple levels L2-3 where it is at least moderate Other: n/a IMPRESSION: No acute intra-abdominal or pelvic finding. Appendix.
[2024-01-03 19:54] LABS: Specific Gravity 1.018 (1.005-1.030); Urine Bilirubin NEGATIVE (Negative); Urine Blood Negative (Negative); Urine Clarity Clear (Clear); Urine Color Yellow (Yellow); Urine Glucose NEGATIVE (Negative); Urine Ketones NEGATIVE (Negative); Urine Microscopic Reflex YN NO UMIC; Urine Nitrite NEGATIVE (Negative); Urine Protein NEGATIVE (Negative); Urine Urobilinogen Normal (Normal); Urine pH 6.5 (5.0-7.0)
[2024-01-03] MEDS ORDERED: KETOROLAC 30 MG/ML INJ ONE (20:33)
[2024-01-03] MEDS ORDERED: HYDROCODONE/APAP 10/325 TAB ONE (20:33)
--- NOTE | 2024-01-03 20:34 | EDPHYS ---
Physician Documentation [facility] Name: Kahlil Slade Age: 58 yrs Sex: Male : 1965 Arrival Date: 01/03/2024 Time: 17:14 Bed 15 Private MD: ED Physician Ej Argueta HPI: 01/02 20:37 This 58 yrs old Male presents to ER via Wheelchair with complaints of Flank Pain. kb 20:37 Patient is a 58-year-old male who presents for left lateral abdominal pain that started kb 4 days ago. Denies nausea, vomiting, diarrhea, fever, urinary symptoms. States pain is worse with movement or palpation.. Historical: - Allergies: 17:34 No Known Allergies; aa5 - PMHx: 17:34 CAD; Hypercholesterolemia; Hypertension; aa5 - PSHx: 17:34 heart stent; aa5 - Immunization history:: Adult Immunizations unknown. - Infectious Disease History:: Denies. - Social history:: Smoking status: Patient reports the use of cigarette tobacco products. ROS: 20:36 Constitutional: As per HPI kb Exam: 20:24 ECG was reviewed by the Attending Physician. kb 20:36 Constitutional: This is a well developed, well nourished patient who is awake, alert, kb and in no acute distress. Head/Face: Normocephalic, atraumatic. ENT: Moist Mucous membranes Cardiovascular: Regular rate Respiratory: Respirations even and unlabored. No increased work of breathing. Talking in full sentences Skin: Warm, dry with normal turgor. Normal color. MS/ Extremity: Pulses equal, no cyanosis. Neurovascular intact. Full, normal range of motion. Neuro: Awake and alert, GCS 15, oriented to person, place, time, and situation. Moves all extremities. Normal gait. 20:36 Abdomen/GI: Inspection: abdomen appears normal, Bowel sounds: normal, Palpation: soft, in all quadrants, mild abdominal tenderness, in the anterior aspect of left lateral abdomen and posterior aspect of left lateral abdomen, Vital Signs: 17:34 BP 115 / 88; Pulse 88; Resp 18 S; Temp 98(TE); Pulse Ox 97% on R/A; Weight 115.67 kg aa5 (R); Height 5 ft. 11 in. (R); 19:00 BP 127 / 89; Pulse 77; Resp 16; Pulse Ox 99% on R/A; pf1 20:00 BP 107 / 67; Pulse 72; Resp 16; Pulse Ox 99% on R/A; pf1 21:00 BP 124 / 63; Pulse 78; Resp 16; Temp 97.9; Pulse Ox 98% on R/A; Pain 3/10; pf1 17:34 Body Mass Index 35.56 (115.67 kg, 180.34 cm) aa5 21:00 Pain Scale: Adult pf1 MDM: 17:26 Patient medically screened. kb 20:36 Differential diagnosis: nephrolithiasis, UTI, diverticulitis, pancreatitis, muscle kb strain. Data reviewed: vital signs, nurses notes. Counseling: I had a detailed discussion with the patient and/or guardian regarding the historical points, exam findings, and any diagnostic results supporting the discharge/admit diagnosis, lab results, radiology results, the need for outpatient follow up, a family practitioner, to return to the emergency department if symptoms worsen or persist or if there are any questions or concerns that arise at home. 01/02 17:39 Order name: CBC with Diff; Complete Time: 19:06 kb 01/02 17:39 Order name: CMP; Complete Time: 19:06 kb 01/02 17:39 Order name: Lipase; Complete Time: 19:06 kb 01/02 17:39 Order name: Urinalysis w/ reflexes; Complete Time: 19:56 kb 01/02 17:39 Order name: Troponin High Sensitivity; Complete Time: 19:06 kb 01/02 17:39 Order name: CT Abd/Pelvis - IV Contrast Only; Complete Time: 19:31 kb 01/02 17:39 Order name: Chest Single View XRAY; Complete Time: 19:06 kb 01/02 17:39 Order name: IV Saline Lock; Complete Time: 18:22 kb 01/02 17:39 Order name: Labs collected and sent; Complete Time: 18:22 kb 01/02 17:39 Order name: EKG - Nurse/Tech; Complete Time: 19:29 kb EC:24 Rate is 70 beats/min. Rhythm is regular. QRS [place] is Normal. NH interval is normal at kb 150 msec. QRS interval is normal at 80 msec. QT interval is normal at 401 msec. Administered Medications: 18:15 Drug: NS 0.9% IV 1000 ml IV at 1 bolus Per protocol; 1000 mL bolus Route: IV; Rate: 1 rs5 bolus; Site: left antecubital; 19:00 Follow up: Response: No adverse reaction; Marked relief of symptoms; IV Status: pf1 Completed infusion; IV Intake: 1000ml 18:15 Drug: Ondansetron IVP 4 mg IVP once; over 2 minutes Route: IVP; Site: right antecubital;rs5 19:00 Follow up: Response: No adverse reaction; Marked relief of symptoms pf1 18:15 Drug: morphine IVP or IV 4 mg IVP once over 4 mins Route: IVP; Infused Over: 4 mins; rs5 Site: right antecubital; 19:00 Follow up: Response: No adverse reaction; Marked relief of symptoms; Pain is decreased; pf1 RASS: Alert and Calm (0) 20:38 Drug: [place] PO 10 mg-325 mg 1 tabs PO once Route: PO; cm10 21:00 Follow up: Response: No adverse reaction; Marked relief of symptoms; Pain is decreased pf1 20:38 Drug: Ketorolac IVP 15 mg IVP once Route: IVP; Site: right antecubital; cm10 21:00 Follow up: Response: No adverse reaction; Marked relief of symptoms; Pain is decreased pf1 Disposition Summary: 01/03/24 20:33 Discharge Ordered Notes: Location: Home kb Condition: Stable kb Diagnosis - Abdominal pain, Generalized - left lateral kb Followup: kb - With: Emergency Department - When: As needed - Reason: Worsening of condition Followup: kb - With: Private Physician - When: 2 - 3 days - Reason: Recheck today's complaints, Continuance of care, Re-evaluation by your physician Discharge Instructions: - Discharge Summary Sheet kb - Musculoskeletal Pain kb - Abdominal Pain, Adult, [id number] kb Forms: - Medication Reconciliation Form kb - Antibiotic Education kb - Prescription Opioid Use kb - Patient Portal Instructions kb - Leadership Thank You Letter kb Prescriptions: - Diclofenac Sodium 75 mg Oral tablet, delayed release (enteric coated) - take 1 tablet ORAL route 2 times per day As needed; 30 tablet; Refills: 0, kb Product Selection Permitted - orphenadrine citrate 100 mg Oral Tablet Sustained Release - take 1 tablet ORAL route 2 times per day As needed; 20 tablet; Refills: 0, kb Product Selection Permitted Signatures: Dispatcher [employer] Liza Coleman FNP-C SERVICE CONSULTANT-CkDahlia Bui, RN RN aa5 Jimenez Puckett, RN RN rs5 Jenn Bose, RN RN cm10 Shyla Valverde RN pf1 Corrections: (The following items were deleted from the chart) 17:39 17:39 Abdomen Pelvis W Con+CT.RAD.BRZ ordered. EDMS EDMS 17:39 17:39 Chest Single View+RAD.RAD.BRZ ordered. EDMS EDMS
--- NOTE | 2024-01-03 20:34 | ER ---
Nurse's Notes [facility] Name: Kahlil Slade Age: 58 yrs Sex: Male : 1965 Arrival Date: 01/03/2024 Time: 17:14 Bed 15 Private MD: Diagnosis: Abdominal pain, Generalized-left lateral Presentation: 01/02 17:34 Coronavirus screen: At this time, the client does not indicate any symptoms associated aa5 with coronavirus-19. Ebola Screen: Patient denies travel to an Ebola-affected area in the 21 days before illness onset. Initial Sepsis Screen: Does the patient meet any 2 criteria? No. Patient's initial sepsis screen is negative. Does the patient have a suspected source of infection? No. Patient's initial sepsis screen is negative. Risk Assessment: Do you want to hurt yourself or someone else? Patient reports no desire to harm self or others. Onset of symptoms was December 2023. 17:34 Acuity: AMY 3 aa5 17:34 Method Of Arrival: Wheelchair aa5 17:34 Chief complaint: Patient states: pain to left lateral aspect of abdomen that began aa5 Friday. Denies nausea/vomiting/diarrhea. Historical: - Allergies: 17:34 No Known Allergies; aa5 - PMHx: 17:34 CAD; Hypercholesterolemia; Hypertension; aa5 - PSHx: 17:34 heart stent; aa5 - Immunization history:: Adult Immunizations unknown. - Infectious Disease History:: Denies. - Social history:: Smoking status: Patient reports the use of cigarette tobacco products. Screenin:33 [facility] ED Fall Risk Assessment (Adult) History of falling in the last 3 months, rs5 including since admission No falls in past 3 months (0 pts) Confusion or Disorientation No (0 pts) Intoxicated or Sedated No (0 pts) Impaired Gait No (0 pts) Mobility Assist Device Used No (0 pt) Altered Elimination No (0 pt) Score/Fall Risk Level 0 - 2 = Low Risk Oriented to surroundings, Maintained a safe environment. Abuse screen: Denies threats or abuse. Nutritional screening: No deficits noted. Tuberculosis screening: No symptoms or risk factors identified. Assessment: 17:33 General: Appears in no apparent distress. uncomfortable, Behavior is calm, cooperative. rs5 Pain: Complains of pain in left flank Pain currently is 8 out of 10 on a pain scale. Quality of pain is described as aching, Is continuous. Neuro: Level of Consciousness is awake, alert, obeys commands, Oriented to person, place, time, situation. Cardiovascular: Rhythm is regular. Respiratory: Airway is patent Respiratory effort is even, unlabored, Respiratory pattern is regular, symmetrical. GI: Abdomen is round non-distended. : No signs and/or symptoms were reported regarding the genitourinary system. EENT: No signs and/or symptoms were reported regarding the EENT system. Derm: Skin is intact, Skin is pink, warm \T\ dry. Musculoskeletal: Range of motion: intact in all extremities. 18:53 Reassessment: Patient is alert, oriented x 3, equal unlabored respirations, skin rs5 warm/dry/pink. Patient is alert/active/playful, equal unlabored respirations, skin warm/dry/pink. Patient denies pain at this time. Patient states feeling better. 19:00 General: Appears in no apparent distress. comfortable, well groomed, well developed, pf1 Behavior is calm, cooperative, appropriate for age, quiet. 19:00 Pain: Complains of pain in posterior aspect of left lateral abdomen and anterior aspect pf1 of left lateral abdomen Pain currently is 7 out of 10 on a pain scale. Neuro: No deficits noted. Level of Consciousness is awake, alert, obeys commands, Oriented to person, place, time, situation. Cardiovascular: No deficits noted. Capillary refill < 3 seconds Patient's skin is warm and dry. Respiratory: No deficits noted. Airway is patent Respiratory effort is even, unlabored, Respiratory pattern is regular, symmetrical, Breath sounds are clear bilaterally. GI: No deficits noted. Abdomen is round non-distended. : No deficits noted. No signs and/or symptoms were reported regarding the genitourinary system. EENT: No deficits noted. No signs and/or symptoms were reported regarding the EENT system. Derm: No deficits noted. No signs and/or symptoms reported regarding the dermatologic system. Musculoskeletal: Reports pain in anterior aspect of left lateral abdomen and posterior aspect of left lateral abdomen. 20:00 Reassessment: Patient appears in no apparent distress at this time. Patient and/or pf1 family updated on plan of care and expected duration. Pain level reassessed. Patient is alert, oriented x 3, equal unlabored respirations, skin warm/dry/pink. 21:00 Reassessment: Patient appears in no apparent distress at this time. Patient and/or pf1 family updated on plan of care and expected duration. Pain level reassessed. Patient is alert, oriented x 3, equal unlabored respirations, skin warm/dry/pink. Patient states feeling better. Patient states symptoms have improved. Vital Signs: 17:34 BP 115 / 88; Pulse 88; Resp 18 S; Temp 98(TE); Pulse Ox 97% on R/A; Weight 115.67 kg aa5 (R); Height 5 ft. 11 in. (R); 19:00 BP 127 / 89; Pulse 77; Resp 16; Pulse Ox 99% on R/A; pf1 20:00 BP 107 / 67; Pulse 72; Resp 16; Pulse Ox 99% on R/A; pf1 21:00 BP 124 / 63; Pulse 78; Resp 16; Temp 97.9; Pulse Ox 98% on R/A; Pain 3/10; pf1 17:34 Body Mass Index 35.56 (115.67 kg, 180.34 cm) aa5 21:00 Pain Scale: Adult pf1 ED Course: 17:19 Patient arrived in ED. mg5 17:26 Liza Gallegos FNP-C is PHCP. kb 17:26 Ej Argueta MD is Attending Physician. kb 17:33 Patient has correct armband on for positive identification. Placed in gown. Bed in low rs5 position. Call light in reach. Side rails up X2. 17:34 Arm band placed on. aa5 17:35 Triage completed. aa5 18:22 CBC with Diff Sent. bc6 18:22 CMP Sent. bc6 18:22 Lipase Sent. bc6 18:22 Initial lab(s) drawn, by [place], sent to lab. Inserted saline lock: 20 gauge in right bc6 antecubital area, using aseptic technique. Blood collected. 18:29 Jimenez Puckett, RN is Primary Nurse. rs5 18:36 Chest Single View XRAY In Process Unspecified. EDMS 19:15 CT Abd/Pelvis - IV Contrast Only In Process Unspecified. EDMS 19:45 No provider procedures requiring assistance completed. Urine collected: clean catch pf1 specimen, jhony colored. 20:23 Primary Nurse role handed off by Jimenez Puckett RN as6 21:00 Provided Education on: prescriptions. pf1 21:00 IV discontinued, intact, bleeding controlled, No redness/swelling at site. Pressure pf1 dressing applied. Administered Medications: 18:15 Drug: NS 0.9% IV 1000 ml IV at 1 bolus Per protocol; 1000 mL bolus Route: IV; Rate: 1 rs5 bolus; Site: left antecubital; 19:00 Follow up: Response: No adverse reaction; Marked relief of symptoms; IV Status: pf1 Completed infusion; IV Intake: 1000ml 18:15 Drug: Ondansetron IVP 4 mg IVP once; over 2 minutes Route: IVP; Site: right antecubital;rs5 19:00 Follow up: Response: No adverse reaction; Marked relief of symptoms pf1 18:15 Drug: morphine IVP or IV 4 mg IVP once over 4 mins Route: IVP; Infused Over: 4 mins; rs5 Site: right antecubital; 19:00 Follow up: Response: No adverse reaction; Marked relief of symptoms; Pain is decreased; pf1 RASS: Alert and Calm (0) 20:38 Drug: [place] PO 10 mg-325 mg 1 tabs PO once Route: PO; cm10 21:00 Follow up: Response: No adverse reaction; Marked relief of symptoms; Pain is decreased pf1 20:38 Drug: Ketorolac IVP 15 mg IVP once Route: IVP; Site: right antecubital; cm10 21:00 Follow up: Response: No adverse reaction; Marked relief of symptoms; Pain is decreased pf1 Medication: 21:00 VIS not applicable for this client. pf1 Intake: 19:00 IV: 1000ml; Total: 1000ml. pf1 Outcome: 20:33 Discharge ordered by . gris 21:00 Patient left the ED. pf1 21:00 Discharged to home ambulatory, with family, pf1 21:00 Condition: improved 21:00 Discharge instructions given to patient, family, Instructed on discharge instructions, follow up and referral plans. Demonstrated understanding of instructions, follow-up care, medications, Prescriptions given X 2, Signatures: Dispatcher [employer] Liza Coleman FNP-C FNP-Dahlia Lyles RN RN aa5 Mike Sanchez RN RN as6 Shyla Valverde RN RN pf1 Jimenez Puckett RN RN rs5 Kaylen Ashford bc6 Jenn Bose RN RN cm10 Kaylan Lopez mg5 Corrections: (The following items were deleted from the chart) 01/03 00:29 01/02 21:04 Patient left the ED. pf1 pf1
[2024-01-03 21:58] VITALS: BP 115/88; TEMP 98; O2SAT 97
--- NOTE | 2024-01-06 14:21 | EKG ---
Test Date: 2024-01-03 Test Time: 19:22:57 Crushed Stone Grader: SUZE MEASUREMENT RESULTS: Intervals: Rate: 70 [place]: 150 QRSD: 80 QT: 372 QTc: 401 [place]: P: 61 [place]: 150 QRS: 78 T: 58 INTERPRETIVE STATEMENTS: Normal sinus rhythm Normal ECG Compared to ECG 04/27/2019 10:25:41 No significant changes Electronically Signed On 01-06-24 14:14:17 CDT by Donny Thomas
== END 2024-01-03 21:04 | disposition home or self-care (01) ==
LOC: ER 17:14
DX: R10.84 Generalized abdominal pain (principal); Z72.0 Tobacco use
CPT/HCPCS: 96361; 93005; 85025; 36415; 81003; 84484; 83690; 80053; 74177; 71045; 96375; 96374; 99284; Q9967; J2405; J7030